=== PATIENT | male | born 1940 | race African-American/Black ===

== ENCOUNTER 2018-05-17 13:59 | Inpatient (IN) | payer MEDICARE ==
[2018-05-17] MEDS ORDERED: NACL 0.9% 1000 ML IV ONE (14:45)
--- NOTE | 2018-05-17 14:53 | Emergency Department Report ---
ED Shortness of Breath HPI - General Chief Complaint: Weakness Stated Complaint: COLD/WEAKNESS Time Seen by Provider: 05/17/18 14:43 Source: family Mode of arrival: Stretcher Limitations: Language Barrier - History of Present Illness Initial Comments: Patient is a 78-year-old gentleman who is presenting with cough congestion. Patient's family member is translating for the patient. Patient states that for the past 2-3 days he's had cough congestion fevers chills. Patient states the cough is productive of clear sputum. Patient denies any chest pain at this time. Patient states he has bouts of hot and cold that are happening intermittently. Patient denies any abdominal pain diarrhea vomiting headaches sore throats at this time. Patient does state he has some generalized weakness and fatigue and sleeping a lot. - Related Data Home Medications Medication Instructions Recorded Confirmed Last Taken Fluticasone [Flonase] 1 spray NS QDAY 05/17/18 05/17/18 Unknown Omeprazole 20 mg PO DAILY 05/17/18 05/17/18 Unknown Pregabalin [Lyrica] 75 mg PO QDAY 05/17/18 05/17/18 Unknown Ropinirole HCl [Requip] 2 mg PO QHS 05/17/18 05/17/18 Unknown Tamsulosin [Flomax] 0.4 mg PO QDAY 05/17/18 05/17/18 Unknown Tramadol HCl/Acetaminophen 2 each PO Q6HR PRN 05/17/18 05/17/18 Unknown [Ultracet] Allergies Allergy/AdvReac Type Severity Reaction Status Date / Time No Known Allergies Allergy Unverified 05/17/18 15:18 ED Review of Systems ROS: Stated complaint: COLD/WEAKNESS Other details as noted in HPI Comment: All other systems reviewed and negative ED Past Medical Hx - Past Medical History Previous Medical History?: Yes Hx of Cancer: Yes (gastric) - Surgical History Past Surgical History?: Yes Hx Cholecystectomy: Yes (2017) Additional Surgical History: colostomy - Social History Smoking Status: Never Smoker Substance Use Type: None - Medications Home Medications: Home Medications Medication Instructions Recorded Confirmed Last Taken Type Fluticasone [Flonase] 1 spray NS QDAY 05/17/18 05/17/18 Unknown History Omeprazole 20 mg PO DAILY 05/17/18 05/17/18 Unknown History Pregabalin [Lyrica] 75 mg PO QDAY 05/17/18 05/17/18 Unknown History Ropinirole HCl [Requip] 2 mg PO QHS 05/17/18 05/17/18 Unknown History Tamsulosin [Flomax] 0.4 mg PO QDAY 05/17/18 05/17/18 Unknown History Tramadol HCl/Acetaminophen 2 each PO Q6HR PRN 05/17/18 05/17/18 Unknown History [Ultracet] ED Physical Exam - General Limitations: Language Barrier General appearance: alert, in no apparent distress - Head Head exam: Present: atraumatic, normocephalic - Eye Eye exam: Present: normal appearance - ENT ENT exam: Present: mucous membranes dry - Neck Neck exam: Present: normal inspection - Respiratory Respiratory exam: Present: normal lung sounds bilaterally, rhonchi. Absent: respiratory distress, wheezes, rales, accessory muscle use - Cardiovascular Cardiovascular Exam: Present: normal rhythm, tachycardia. Absent: systolic murmur, diastolic murmur, rubs, gallop - GI/Abdominal GI/Abdominal exam: Present: soft, normal bowel sounds. Absent: distended, tenderness, guarding, rebound - Rectal Rectal exam: Present: deferred - Extremities Exam Extremities exam: Present: normal inspection - Back Exam Back exam: Present: normal inspection - Neurological Exam Neurological exam: Present: alert, oriented X3 - Psychiatric Psychiatric exam: Present: normal affect, normal mood - Skin Skin exam: Present: warm, dry, intact, normal color. Absent: rash ED Course Vital Signs 05/17/18 05/17/18 05/17/18 14:15 14:30 14:35 Temperature 100.1 F H Pulse Rate 105 H 85 Respiratory 20 Rate Blood Pressure 131/70 130/71 O2 Sat by Pulse 96 97 96 Oximetry 05/17/18 14:45 Temperature Pulse Rate 104 H Respiratory 21 Rate Blood Pressure 130/74 O2 Sat by Pulse 97 Oximetry ED Medical Decision Making - Lab Data Result diagrams: 05/17/18 16:01 05/17/18 15:09 Lab Results 05/17/18 05/17/18 05/17/18 Range/Units 15:09 15:09 16:01 WBC 4.2 L (4.5-11.0) K/mm3 RBC 3.74 (3.65-5.03) M/mm3 Hgb 12.8 (11.8-15.2) gm/dl Hct 37.3 (35.5-45.6) % MCV 100 H (84-94) fl MCH 34 H (28-32) pg MCHC 34 (32-34) % RDW 22.0 H (13.2-15.2) % Plt Count 79 L (140-440) K/mm3 Lymph % (Auto) [employer] [place] % (Auto) [employer]iller Eos % (Auto) [employer]iller Baso % (Auto) [employer]iller Lymph # [employer]iller [place] # [employer]iller Eos # [employer]iller Baso # Diamond [employer] Driller Add Manual Diff Complete Total Counted 100 Seg Neutrophils % [employer] Driller Seg Neuts % (Manual) 65.0 (40.0-70.0) % Band Neutrophils % 0 % Lymphocytes % (Manual) 12.0 L (13.4-35.0) % Reactive Lymphs % (Man) 0 % Monocytes % (Manual) 22.0 H (0.0-7.3) % Eosinophils % (Manual) 1.0 (0.0-4.3) % Basophils % (Manual) 0 (0.0-1.8) % Metamyelocytes % 0 % Myelocytes % 0 % Promyelocytes % 0 % Blast Cells % 0 % Nucleated RBC % Not Reportable Seg Neutrophils # Diamond [employer] Driller Seg Neutrophils # Man 2.7 (1.8-7.7) K/mm3 Band Neutrophils # 0.0 K/mm3 Lymphocytes # (Manual) 0.5 L (1.2-5.4) K/mm3 Abs React Lymphs (Man) 0.0 K/mm3 Monocytes # (Manual) 0.9 H (0.0-0.8) K/mm3 Eosinophils # (Manual) 0.0 (0.0-0.4) K/mm3 Basophils # (Manual) 0.0 (0.0-0.1) K/mm3 Metamyelocytes # 0.0 K/mm3 Myelocytes # 0.0 K/mm3 Promyelocytes # 0.0 K/mm3 Blast Cells # 0.0 K/mm3 WBC Morphology Not Reportable Hypersegmented Neuts Not Reportable Hyposegmented Neuts Not Reportable Hypogranular Neuts Not Reportable Smudge Cells Not Reportable Toxic Granulation Not Reportable Toxic Vacuolation Not Reportable Dohle Bodies Not Reportable Pelger-Huet Anomaly Not Reportable Grecia Rods Not Reportable Platelet Estimate Not Reportable Clumped Platelets Not Reportable Plt Clumps, EDTA Not Reportable Large Platelets Not Reportable Giant Platelets Not Reportable Platelet Satelliting Not Reportable Plt Morphology Comment Not Reportable RBC Morphology Normal Dimorphic RBCs Not Reportable Polychromasia Not Reportable Hypochromasia Not Reportable Poikilocytosis Not Reportable Anisocytosis Not Reportable Microcytosis Not Reportable Macrocytosis Not Reportable Spherocytes Not Reportable Pappenheimer Bodies Not Reportable Sickle Cells Not Reportable Target Cells Not Reportable Tear Drop Cells Not Reportable Ovalocytes Not Reportable Helmet Cells Not Reportable Hidalgo-Champ Bodies Not Reportable Gaston Rings Not Reportable [place] Cells Not Reportable Bite Cells Not Reportable Crenated Cell Not Reportable Elliptocytes Not Reportable Acanthocytes (Spur) Not Reportable Rouleaux Not Reportable Hemoglobin C Crystals Not Reportable Schistocytes Not Reportable Malaria parasites Not Reportable Cassius Bodies Not Reportable Hem Pathologist Commnt No D-Dimer 624.81 H (0-234) ng/mlDDU Sodium 133 L (137-145) mmol/L Potassium 3.9 (3.6-5.0) mmol/L Chloride 98.3 (98-107) mmol/L Carbon Dioxide 25 (22-30) mmol/L Anion Gap 14 mmol/L BUN 19 (9-20) mg/dL Creatinine 0.8 (0.8-1.5) mg/dL Estimated GFR > 60 ml/min BUN/Creatinine Ratio 24 % Glucose 78 (75-100) mg/dL Lactic Acid (0.7-2.0) mmol/L Calcium 10.2 (8.4-10.2) mg/dL Total Bilirubin 0.80 (0.1-1.2) mg/dL AST 34 (5-40) units/L ALT 18 (7-56) units/L Alkaline Phosphatase 70 (35-129) units/L Total Protein 7.9 (6.3-8.2) g/dL Albumin 3.9 (3.9-5) g/dL Albumin/Globulin Ratio 1.0 % 05/17/18 05/17/18 Range/Units 16:01 16:36 WBC (4.5-11.0) K/mm3 RBC (3.65-5.03) M/mm3 Hgb (11.8-15.2) gm/dl Hct (35.5-45.6) % MCV (84-94) fl MCH (28-32) pg MCHC (32-34) % RDW (13.2-15.2) % Plt Count (140-440) K/mm3 Lymph % (Auto) [place] % (Auto) Eos % (Auto) Baso % (Auto) Lymph # [place] # Eos # Baso # Add Manual Diff Total Counted Seg Neutrophils % Seg Neuts % (Manual) (40.0-70.0) % Band Neutrophils % % Lymphocytes % (Manual) (13.4-35.0) % Reactive Lymphs % (Man) % Monocytes % (Manual) (0.0-7.3) % Eosinophils % (Manual) (0.0-4.3) % Basophils % (Manual) (0.0-1.8) % Metamyelocytes % % Myelocytes % % Promyelocytes % % Blast Cells % % Nucleated RBC % Seg Neutrophils # Seg Neutrophils # Man (1.8-7.7) K/mm3 Band Neutrophils # K/mm3 Lymphocytes # (Manual) (1.2-5.4) K/mm3 Abs React Lymphs (Man) K/mm3 Monocytes # (Manual) (0.0-0.8) K/mm3 Eosinophils # (Manual) (0.0-0.4) K/mm3 Basophils # (Manual) (0.0-0.1) K/mm3 Metamyelocytes # K/mm3 Myelocytes # K/mm3 Promyelocytes # K/mm3 Blast Cells # K/mm3 WBC Morphology Hypersegmented Neuts Hyposegmented Neuts Hypogranular Neuts Smudge Cells Toxic Granulation Toxic Vacuolation Dohle Bodies Pelger-Huet Anomaly Grecia Rods Platelet Estimate Clumped Platelets Plt Clumps, EDTA Large Platelets Giant Platelets Platelet Satelliting Plt Morphology Comment RBC Morphology Dimorphic RBCs Polychromasia Hypochromasia Poikilocytosis Anisocytosis Microcytosis Macrocytosis Spherocytes Pappenheimer Bodies Sickle Cells Target Cells Tear Drop Cells Ovalocytes Helmet Cells Hidalgo-Champ Bodies [place] Rings [place] Cells Bite Cells Crenated Cell Elliptocytes Acanthocytes (Spur) Rouleaux Hemoglobin C Crystals Schistocytes Malaria parasites Cassius Bodies Hem Pathologist Commnt D-Dimer (0-234) ng/mlDDU Sodium (137-145) mmol/L Potassium (3.6-5.0) mmol/L Chloride (98-107) mmol/L Carbon Dioxide (22-30) mmol/L Anion Gap mmol/L BUN (9-20) mg/dL Creatinine (0.8-1.5) mg/dL Estimated GFR ml/min BUN/Creatinine Ratio % Glucose (75-100) mg/dL Lactic Acid 2.40 H* 2.50 H* (0.7-2.0) mmol/L Calcium (8.4-10.2) mg/dL Total Bilirubin (0.1-1.2) mg/dL AST (5-40) units/L ALT (7-56) units/L Alkaline Phosphatase (35-129) units/L Total Protein (6.3-8.2) g/dL Albumin (3.9-5) g/dL Albumin/Globulin Ratio % - Radiology Data Ordering Physician: GLORIA CHANDRA MD Date of Service: 05/17/18 Procedure(s): CT angio chest Accession Number(s): [id number] cc: GLORIA CHANDRA MD FINAL REPORT EXAM: CT ANGIO CHEST HISTORY: LLL opacity, sob, elevated ddimer TECHNIQUE: CTA of the chest was performed after the administration of intravenous contrast. Coronal and sagittal reconstructions were included. Rotating MIPS were also included. PRIORS: None. FINDINGS: Pulmonary arteries and thoracic aorta: The study is adequate for diagnostic purposes. No central or segmental pulmonary embolism. The thoracic aorta is normal in caliber. Atherosclerotic calculi are seen in the thoracic aorta. A left chest port is present with the tip lying in the right atrium. Lungs and airways: Trace left pleural effusion is seen. The airways are patent. No bronchiectasis. There is a focal spiculated nodule in the anterior aspect of the right upper lobe on series 2, image 37 measuring 10 x 9 millimeters. There is another focal nodule in the anterior aspect of the right upper lobe on series 2, image 54 with mild central cavitation measuring 1.6 x 1.6 centimeters. Another nodule with central cavitation is seen in the right upper lobe on series 2, image 58 measuring 1.4 x 0.8 centimeters. A smaller nodule with central cavitation is seen in the anterior aspect of the right lower lobe on series 2, image 64 measuring 6 millimeters. Another nodule with central cavitation is seen in the central aspect of the right lower lobe on series 2, image 57 measuring 1.3 x 1.0 centimeters. There is a focal mass in the inferior aspect of the left upper lobe in the region of the previously seen opacity on the chest x-ray on series 2, image 69 measuring 3.2 x 3.0 centimeters. Focal nodule in the posterior aspect of the left lower lobe is seen on series 2, image 104 measuring 1.5 x 1.0 centimeters. Bilateral dependent atelectasis is seen. Multifocal areas of linear opacity are seen scattered throughout the lungs, predominantly within the upper lobes and posterior aspect of the right lower lobe. Mediastinum, heart, pericardium: Several small mediastinal and hilar lymph nodes are seen. The largest is seen in the subcarinal region measuring 2.3 x 1.1 centimeters. No cardiac chamber enlargement. No pericardial effusion. Thoracic inlet, chest wall, axilla: No chest wall masses. The visualized portions of the thyroid gland demonstrate no focal lesion. No axillary lymphadenopathy. Upper abdomen: Post cholecystectomy. Several tiny low-attenuation hepatic lesions are seen which are too small to characterize but likely represent small cysts. Bones: Degenerative changes are seen in the spine. IMPRESSION: 1. No central or segmental pulmonary embolism. 2. Multifocal pulmonary nodules and masses with the largest in the inferior aspect of the left upper lobe measuring 3.2 centimeters. These nodules may represent metastatic disease versus septic emboli. Primary pulmonary neoplasm with multiple focal pulmonary metastases is also possible. 3. Several small mediastinal lymph nodes may be reactive versus neoplastic. 4. Trace left pleural effusion. Transcribed By: MG Dictated By: JACQUELINE DUMONT MD Electronically Authenticated By: JACQUELINE DUMONT MD Signed Date/Time: 05/17/18 1744 - Medical Decision Making Patient is a 78-year-old [place] gentleman who presented with cough congestion and fevers and chills for the past several days. Patient did meet sepsis protocol by vital signs on admission. Patient started on antibiotics after blood cultures drawn did get IV hydration and continued to be stable during his visit in the emergency department. Initially thought the patient may have pneumonia however his CT of the chest shows multiple pulmonary nodules though suspicious for metastasis however septic emboli has not been ruled out. Patient also has a small pleural effusion on the left that he has several small mediastinal lymph nodes that appear to be reactive. Patient will be admitted to the hospitalist service and Dr. Bearden at this time. Critical Care Time: Yes (30) Critical care time in (mins) excluding proc time.: 30 Critical care attestation.: If time is entered above; I have spent that time in minutes in the direct care of this critically ill patient, excluding procedure time. ED Disposition Clinical Impression: Lung nodules, Pneumonitis, Sepsis Disposition: OP ADMIT IP TO THIS HOSP Is pt being admited?: Yes Does the pt Need Aspirin: No Condition: Stable Referrals: PRIMARY CARE, [Primary Care Provider] - 3-5 Days
[2018-05-17] MEDS ORDERED: LEVAQUIN 750MG/150ML 750 MG/150 ML BAG IV ONE (15:12)
[2018-05-17 15:38] LABS: Alanine Aminotransferase 18 units/L (7-56); Albumin 3.9 g/dL (3.9-5); BUN/Creatinine Ratio 24; Blood Urea Nitrogen 19 mg/dL (9-20); Calcium 10.2 mg/dL (8.4-10.2); Hemolysis Index 40
--- NOTE | 2018-05-17 15:46 | XRay Report ---
FINAL REPORT EXAM: XR CHEST 1V AP HISTORY: cough TECHNIQUE: Frontal chest radiograph. PRIORS: None. FINDINGS: A left chest port is present with the tip projecting at the cavoatrial junction. The cardiomediastinal silhouette is normal. There is a focal rounded opacity projecting in the left lower lobe measuring approximately 3.9 centimeters. No pleural effusion. No pneumothorax. No acute osseous abnormality. Right upper quadrant surgical clips are. IMPRESSION: Focal rounded opacity in the left lower lobe may represent a pulmonary nodule. Recommend further evaluation with chest CT.
[2018-05-17] MEDS ORDERED: LEVAQUIN 750MG/150ML 750 MG/150 ML BAG IV SCH (16:00)
[2018-05-17 16:22] LABS: Hematocrit 37.3 % (35.5-45.6); Hemoglobin 12.8 gm/dl (11.8-15.2); Mean Corpuscular HGB Conc 34 % (32-34); Mean Corpuscular Hemoglobin 34 pg (28-32); Mean Corpuscular Volume 100 fl (84-94); Red Blood Count 3.74 M/mm3 (3.65-5.03)
[2018-05-17 16:25] LABS: Platelet Count 79 K/mm3 (140-440)
[2018-05-17 17:24] LABS: Basophils % (Manual) 0 % (0.0-1.8); RBC Morphology Normal; Total Cells Counted 100
--- NOTE | 2018-05-17 17:48 | Cat Scan Report ---
FINAL REPORT EXAM: CT ANGIO CHEST HISTORY: LLL opacity, sob, elevated ddimer TECHNIQUE: CTA of the chest was performed after the administration of intravenous contrast. Coronal and sagittal reconstructions were included. Rotating MIPS were also included. PRIORS: None. FINDINGS: Pulmonary arteries and thoracic aorta: The study is adequate for diagnostic purposes. No central or segmental pulmonary embolism. The thoracic aorta is normal in caliber. Atherosclerotic calculi are seen in the thoracic aorta. A left chest port is present with the tip lying in the right atrium. Lungs and airways: Trace left pleural effusion is seen. The airways are patent. No bronchiectasis. There is a focal spiculated nodule in the anterior aspect of the right upper lobe on series 2, image 37 measuring 10 x 9 millimeters. There is another focal nodule in the anterior aspect of the right upper lobe on series 2, image 54 with mild central cavitation measuring 1.6 x 1.6 centimeters. Another nodule with central cavitation is seen in the right upper lobe on series 2, image 58 measuring 1.4 x 0.8 centimeters. A smaller nodule with central cavitation is seen in the anterior aspect of the right lower lobe on series 2, image 64 measuring 6 millimeters. Another nodule with central cavitation is seen in the central aspect of the right lower lobe on series 2, image 57 measuring 1.3 x 1.0 centimeters. There is a focal mass in the inferior aspect of the left upper lobe in the region of the previously seen opacity on the chest x-ray on series 2, image 69 measuring 3.2 x 3.0 centimeters. Focal nodule in the posterior aspect of the left lower lobe is seen on series 2, image 104 measuring 1.5 x 1.0 centimeters. Bilateral dependent atelectasis is seen. Multifocal areas of linear opacity are seen scattered throughout the lungs, predominantly within the upper lobes and posterior aspect of the right lower lobe. Mediastinum, heart, pericardium: Several small mediastinal and hilar lymph nodes are seen. The largest is seen in the subcarinal region measuring 2.3 x 1.1 centimeters. No cardiac chamber enlargement. No pericardial effusion. Thoracic inlet, chest wall, axilla: No chest wall masses. The visualized portions of the thyroid gland demonstrate no focal lesion. No axillary lymphadenopathy. Upper abdomen: Post cholecystectomy. Several tiny low-attenuation hepatic lesions are seen which are too small to characterize but likely represent small cysts. Bones: Degenerative changes are seen in the spine. IMPRESSION: 1. No central or segmental pulmonary embolism. 2. Multifocal pulmonary nodules and masses with the largest in the inferior aspect of the left upper lobe measuring 3.2 centimeters. These nodules may represent metastatic disease versus septic emboli. Primary pulmonary neoplasm with multiple focal pulmonary metastases is also possible. 3. Several small mediastinal lymph nodes may be reactive versus neoplastic. 4. Trace left pleural effusion.
[2018-05-17 21:26] LABS: Bilirubin,Urine NEG (Negative); Blood,Urine NEG (Negative); Color,Urine Yellow (Yellow); Mucus,Urine FEW /HPF; Protein,Urine <15 mg/dL mg/dL (Negative); Urobilinogen,Urine < 2.0 mg/dL (<2.0)
--- NOTE | 2018-05-17 22:18 | History and Physical Report ---
History of Present Illness Date of examination: 05/17/18 History of present illness: 78 year old man with history of metastatic colon cancer comes to the ER for evaluation of fever, chills, fatigue. He is currently undergoing chemotherapy and was postponed yesterday because of his weakness. He complains of painful blisters that came out on his lower lip, his throat feels dry, also has a non- productive cough Review of systems Constitutional: no weight loss Ears, eyes, nose, mouth and throat: no nasal congestion, no nasal discharge, no sinus pressure, no vision change, no red eye. Neck: No neck pain or rigidity. Cardiovascular: no chest pain palpitations Respiratory: no cough, shortness of breath Gastrointestinal: no abdominal pain, hematochezia Genitourinary : no frequency , no hematuria Musculoskeletal: no joint swelling or muscle ache Integumentary: no rash, no pruritis Neurological: no parathesias, no numbness, no focal weakness Endocrine: no cold or heat intolerance, no polyuria or polydipsia Hematologic/Lymphatic: no easy bruising, no easy bleeding, no gland swelling Allergic/Immunologic: no urticaria, no angioedema. PAST MEDICAL HISTORY: metastatic colon PAST SURGICAL HISTORY: Colostomy, part of the colon removed SOCIAL HISTORY: No alcohol, no drugs, tobacco FAMILY HISTORY: Hypertension Medications and Allergies Allergies Allergy/AdvReac Type Severity Reaction Status Date / Time No Known Allergies Allergy Unverified 05/17/18 15:18 Home Medications Medication Instructions Recorded Confirmed Last Taken Type Fluticasone [Flonase] 1 spray NS QDAY 05/17/18 05/17/18 Unknown History Omeprazole 20 mg PO DAILY 05/17/18 05/17/18 Unknown History Pregabalin [Lyrica] 75 mg PO QDAY 05/17/18 05/17/18 Unknown History Ropinirole HCl [Requip] 2 mg PO QHS 05/17/18 05/17/18 Unknown History Tamsulosin [Flomax] 0.4 mg PO QDAY 05/17/18 05/17/18 Unknown History Tramadol HCl/Acetaminophen 2 each PO Q6HR PRN 05/17/18 05/17/18 Unknown History [Ultracet] Nystas/Diphen/Xyl Visc/Mylanta 15 ml PO TID #1 oral.liqd 05/20/18 Unknown Rx [Magic Mouthwash] Sodium Bicarbonate 650 mg PO BID #10 tablet 05/20/18 Unknown Rx Active Meds: Active Medications Levofloxacin/Dextrose (Levaquin 750mg/150ml) 750 mg in 150 mls @ 100 mls/hr IV Q48H [facility]; Protocol Last Admin: 05/17/18 15:05 Dose: 100 mls/hr Exam - Physical Exam Narrative exam: Gen. appearance: Patient lying in bed, no apparent distress HEENT: Normocephalic, atraumatic, pupils equally round and reactive to light, eyes are , extraocular movement intact, and no sclericterus,. No JVD or thyromegaly or nodule,neck supple, no carotid bruit ,mucous membranes dry, no exudate or erythema Heart: S1, S2, regular rate and rhythm Lungs: Clear bilaterally, breathing comfortable Abdomen: Positive bowel sounds, nontender, nondistended, no organomegaly Extremity:no edema cyanosis, clubbing Skin no rash, dry Neuro: Oriented 3, cranial nerves II-12 intact, speech is fluent, motor and sensory intact - Constitutional Vitals: Temp Pulse Resp BP Pulse Ox 100.1 F H 105 H 19 91/57 97 05/17/18 14:35 05/17/18 21:15 05/17/18 21:15 05/17/18 21:15 05/17/18 21:15 Results - Labs CBC & Chem 7: 05/19/18 11:55 05/20/18 05:45 Labs: Abnormal lab results 05/17/18 05/17/18 05/17/18 Range/Units 15:09 15:09 16:01 WBC 4.2 L (4.5-11.0) K/mm3 MCV 100 H (84-94) fl MCH 34 H (28-32) pg RDW 22.0 H (13.2-15.2) % Plt Count 79 L (140-440) K/mm3 Lymphocytes % (Manual) 12.0 L (13.4-35.0) % Monocytes % (Manual) 22.0 H (0.0-7.3) % Lymphocytes # (Manual) 0.5 L (1.2-5.4) K/mm3 Monocytes # (Manual) 0.9 H (0.0-0.8) K/mm3 D-Dimer 624.81 H (0-234) ng/mlDDU Sodium 133 L (137-145) mmol/L Lactic Acid (0.7-2.0) mmol/L Ur Specific [place] (1.003-1.030) 05/17/18 05/17/18 05/17/18 Range/Units 16:01 16:36 21:14 WBC (4.5-11.0) K/mm3 MCV (84-94) fl MCH (28-32) pg RDW (13.2-15.2) % Plt Count (140-440) K/mm3 Lymphocytes % (Manual) (13.4-35.0) % Monocytes % (Manual) (0.0-7.3) % Lymphocytes # (Manual) (1.2-5.4) K/mm3 Monocytes # (Manual) (0.0-0.8) K/mm3 D-Dimer (0-234) ng/mlDDU Sodium (137-145) mmol/L Lactic Acid 2.40 H* 2.50 H* (0.7-2.0) mmol/L Ur Specific [place] 1.060 H (1.003-1.030) - Imaging and Cardiology Chest x-ray: image reviewed CT scan - chest: report reviewed Assessment and Plan Assessment SIRS MEtastatic colon CAncer Thrombocytopenia Plan Admit to medicine Start IV fluid, vancomycin, zosyn and ayclovir Follow culture DVT prophalaxis
[2018-05-18] MEDS ORDERED: TYLENOL PO PRN ×2 (00:11→00:18)
[2018-05-18] MEDS ORDERED: SODIUM CHLORIDE FLUSH SYRINGE 10 ML IV PRN ×2 (00:11→00:18)
[2018-05-18] MEDS ORDERED: ZOFRAN IV PRN ×2 (00:11→00:18)
[2018-05-18] MEDS ORDERED: VANCOMYCIN/NS 1 GM/250 ML 1 GM/250 ML BAG IV SCH (01:00)
[2018-05-18] MEDS ORDERED: NACL 0.9% IV SCH (01:00)
[2018-05-18] MEDS ORDERED: ZOVIRAX IV SCH (01:00)
[2018-05-18] MEDS ORDERED: VANCOMYCIN PHARMACY TO DOSE IV SCH (01:00)
[2018-05-18] MEDS ORDERED: VANCOMYCIN 1,250 MG in NACL 0.9% 250ML 250 ML IV ONE (01:00)
[2018-05-18] MEDS: NACL 0.9% IV SCH ×3 (01:20→17:40)
[2018-05-18] MEDS: ZOVIRAX IV SCH ×3 (01:20→17:40)
[2018-05-18] MEDS: NACL 0.9% 1000 ML 1,000 ML IV SCH ×2 (01:21→21:08)
[2018-05-18] MEDS: ZOSYN/NS 4.5GM/100ML 4.5 GM/100 ML VIAL IV SCH ×3 (05:34→21:57)
[2018-05-18] MEDS ORDERED: ZOSYN/NS 3.375GM/50ML 3.375 GM/50 ML BAG IV SCH (06:00)
[2018-05-18 06:26] LABS: Hematocrit 41.1 % (35.5-45.6); Hemoglobin 14.2 gm/dl (11.8-15.2); Mean Corpuscular HGB Conc 35 % (32-34); Mean Corpuscular Hemoglobin 34 pg (28-32); Mean Corpuscular Volume 99 fl (84-94); Red Blood Count 4.17 M/mm3 (3.65-5.03)
[2018-05-18 06:36] LABS: Platelet Count 95 K/mm3 (140-440); Red Cell Distribution Width 22.7 % (13.2-15.2)
[2018-05-18 06:43] LABS: BUN/Creatinine Ratio 26; Blood Urea Nitrogen 21 mg/dL (9-20); Calcium 9.1 mg/dL (8.4-10.2); Hemolysis Index 4
[2018-05-18 08:19] LABS: Anisocytosis 1+; Band Neutrophils # (Manual) 0.1 K/mm3; Basophils % (Manual) 0 % (0.0-1.8); Eosinophils % (Manual) 0 % (0.0-4.3); Ovalocytes 1+; Platelet Estimate Appears Decreased; Promyelocytes # (Manual) 0.1 K/mm3; Total Cells Counted 100
--- NOTE | 2018-05-18 09:09 | Progress Note ---
Assessment and Plan Assessment and plan: 78 year old man with history of metastatic colon cancer comes to the ER for evaluation of fever, chills, fatigue for several days. He is currently undergoing chemotherapy and was postponed yesterday because of his weakness. He complains of painful blisters that came out on his lower lip, his throat feels dry, also has a non-productive cough. Sepsis Septic Emboli vs Metastic Pulmonary disease Metastatic colon Cancer Secondary Hypercoagluopathy Hyponatremia-Resolved Trace Pleural Effusion Thrombocytopenia Plan Admit to medicine Continue IV fluid, vancomycin, zosyn and acyclovir Start on nystatin Consult Hematology and ID Defer to Hematology about Anticoagulation considering Thrombocytopenia Obtain doppler lower ext Follow culture DVT prophalaxis History Interval history: Patient seen and examined, still with some shortness of breath. Denies any chest pain discussed with the healthcare interpreter as requested by the family with the son in law. Hospitalist Physical - Physical exam Narrative exam: VITAL SIGNS: Reviewed. GENERAL: The patient appeared well nourished and normally developed otherwise lethargic. Vital signs as documented. HEAD: No signs of head trauma. EYES: Pupils are equal. Extraocular motions intact. EARS: Hearing grossly intact. MOUTH: Oropharynx is normal. NECK: No adenopathy, no JVD. CHEST: Chest with diminished breath sounds bilaterally. No wheezes, rales, or rhonchi. CARDIAC: Regular rate and rhythm. S1 and S2, without murmurs, gallops, or rubs. VASCULAR: No Edema. Peripheral pulses normal and equal in all extremities. ABDOMEN: Soft, without detectable tenderness. No sign of distention. No rebound or guarding, and no masses palpated. Bowel Sounds normal. MUSCULOSKELETAL: Good range of motion of all major joints. Extremities without clubbing, cyanosis or edema. NEUROLOGIC EXAM: Awake but lethargic and oriented x 3. No focal sensory or strength deficits. Speech normal. Follows commands. PSYCHIATRIC: Mood normal. SKIN: No rash or lesions. - Constitutional Vitals: Temp Pulse Resp BP Pulse Ox 98.9 F 86 18 120/62 96 05/18/18 06:12 05/18/18 06:12 05/18/18 06:12 05/18/18 06:12 05/18/18 06:12 Results - Labs CBC & Chem 7: 05/18/18 05:52 05/18/18 05:52 Labs: Laboratory Last Values WBC 6.5 K/mm3 (4.5-11.0) 05/18/18 05:52 RBC 4.17 M/mm3 (3.65-5.03) 05/18/18 05:52 Hgb 14.2 gm/dl (11.8-15.2) 05/18/18 05:52 Hct 41.1 % (35.5-45.6) 05/18/18 05:52 MCV 99 fl (84-94) H 05/18/18 05:52 MCH 34 pg (28-32) H 05/18/18 05:52 MCHC 35 % (32-34) H 05/18/18 05:52 RDW 22.7 % (13.2-15.2) H 05/18/18 05:52 Plt Count 95 K/mm3 (140-440) L 05/18/18 05:52 Lymph % (Auto) Photocomposing Machine Operator 05/17/18 16:01 Page % (Auto) Photocomposing Machine Operator 05/18/18 05:52 Eos % (Auto) Photocomposing Machine Operator 05/17/18 16:01 Baso % (Auto) Photocomposing Machine Operator 05/17/18 16:01 Lymph # Photocomposing Machine Operator 05/17/18 16:01 Page # Photocomposing Machine Operator 05/17/18 16:01 Eos # Photocomposing Machine Operator 05/17/18 16:01 Baso # Photocomposing Machine Operator 05/17/18 16:01 Add Manual Diff Complete 05/18/18 05:52 Total Counted 100 05/18/18 05:52 Seg Neutrophils % Photocomposing Machine Operator 05/17/18 16:01 Seg Neuts % (Manual) 84.0 % (40.0-70.0) H 05/18/18 05:52 Band Neutrophils % 2.0 % 05/18/18 05:52 Lymphocytes % (Manual) 6.0 % (13.4-35.0) L 05/18/18 05:52 Reactive Lymphs % (Man) 0 % 05/18/18 05:52 Monocytes % (Manual) 6.0 % (0.0-7.3) 05/18/18 05:52 Eosinophils % (Manual) 0 % (0.0-4.3) 05/18/18 05:52 Basophils % (Manual) 0 % (0.0-1.8) 05/18/18 05:52 Metamyelocytes % 1.0 % 05/18/18 05:52 Myelocytes % 0 % 05/18/18 05:52 Promyelocytes % 1.0 % 05/18/18 05:52 Blast Cells % 0 % 05/18/18 05:52 Nucleated RBC % Not Reportable 05/18/18 05:52 Seg Neutrophils # Photocomposing Machine Operator 05/17/18 16:01 Seg Neutrophils # Man 5.5 K/mm3 (1.8-7.7) 05/18/18 05:52 Band Neutrophils # 0.1 K/mm3 05/18/18 05:52 Lymphocytes # (Manual) 0.4 K/mm3 (1.2-5.4) L 05/18/18 05:52 Abs React Lymphs (Man) 0.0 K/mm3 05/18/18 05:52 Monocytes # (Manual) 0.4 K/mm3 (0.0-0.8) 05/18/18 05:52 Eosinophils # (Manual) 0.0 K/mm3 (0.0-0.4) 05/18/18 05:52 Basophils # (Manual) 0.0 K/mm3 (0.0-0.1) 05/18/18 05:52 Metamyelocytes # 0.1 K/mm3 05/18/18 05:52 Myelocytes # 0.0 K/mm3 05/18/18 05:52 Promyelocytes # 0.1 K/mm3 05/18/18 05:52 Blast Cells # 0.0 K/mm3 05/18/18 05:52 WBC Morphology Not Reportable 05/18/18 05:52 Hypersegmented Neuts Not Reportable 05/18/18 05:52 Hyposegmented Neuts Not Reportable 05/18/18 05:52 Hypogranular Neuts Not Reportable 05/18/18 05:52 Smudge Cells Not Reportable 05/18/18 05:52 Toxic Granulation Not Reportable 05/18/18 05:52 Toxic Vacuolation Not Reportable 05/18/18 05:52 Dohle Bodies Not Reportable 05/18/18 05:52 Pelger-Huet Anomaly Not Reportable 05/18/18 05:52 Grecia Rods Not Reportable 05/18/18 05:52 Platelet Estimate Appears decreased 05/18/18 05:52 Clumped Platelets Not Reportable 05/18/18 05:52 Plt Clumps, EDTA Not Reportable 05/18/18 05:52 Large Platelets Not Reportable 05/18/18 05:52 Giant Platelets Not Reportable 05/18/18 05:52 Platelet Satelliting Not Reportable 05/18/18 05:52 Plt Morphology Comment Not Reportable 05/18/18 05:52 RBC Morphology Not Reportable 05/18/18 05:52 Dimorphic RBCs Not Reportable 05/18/18 05:52 Polychromasia Not Reportable 05/18/18 05:52 Hypochromasia Not Reportable 05/18/18 05:52 Poikilocytosis Not Reportable 05/18/18 05:52 Anisocytosis 1+ 05/18/18 05:52 Microcytosis Not Reportable 05/18/18 05:52 Macrocytosis Not Reportable 05/18/18 05:52 Spherocytes Not Reportable 05/18/18 05:52 Pappenheimer Bodies Not Reportable 05/18/18 05:52 Sickle Cells Not Reportable 05/18/18 05:52 Target Cells Not Reportable 05/18/18 05:52 Tear Drop Cells Not Reportable 05/18/18 05:52 Ovalocytes 1+ 05/18/18 05:52 Helmet Cells Not Reportable 05/18/18 05:52 [place] Bodies Not Reportable 05/18/18 05:52 [place] Rings Not Reportable 05/18/18 05:52 [place] Cells Not Reportable 05/18/18 05:52 Bite Cells Not Reportable 05/18/18 05:52 Crenated Cell Not Reportable 05/18/18 05:52 Elliptocytes Not Reportable 05/18/18 05:52 Acanthocytes (Spur) Not Reportable 05/18/18 05:52 Rouleaux Not Reportable 05/18/18 05:52 Hemoglobin C Crystals Not Reportable 05/18/18 05:52 Schistocytes Not Reportable 05/18/18 05:52 Malaria parasites Not Reportable 05/18/18 05:52 Cassius Bodies Not Reportable 05/18/18 05:52 Hem Pathologist Commnt No 05/18/18 05:52 D-Dimer 624.81 ng/mlDDU (0-234) H 05/17/18 15:09 Sodium 137 mmol/L (137-145) 05/18/18 05:52 Potassium 3.9 mmol/L (3.6-5.0) 05/18/18 05:52 Chloride 98.4 mmol/L (98-107) 05/18/18 05:52 Carbon Dioxide 23 mmol/L (22-30) 05/18/18 05:52 Anion Gap 20 mmol/L 05/18/18 05:52 BUN 21 mg/dL (9-20) H 05/18/18 05:52 Creatinine 0.8 mg/dL (0.8-1.5) 05/18/18 05:52 Estimated GFR > 60 ml/min 05/18/18 05:52 BUN/Creatinine Ratio 26 % 05/18/18 05:52 Glucose 105 mg/dL (75-100) H 05/18/18 05:52 Lactic Acid 1.30 mmol/L (0.7-2.0) 05/17/18 20:10 Calcium 9.1 mg/dL (8.4-10.2) 05/18/18 05:52 Total Bilirubin 0.80 mg/dL (0.1-1.2) 05/17/18 15:09 AST 34 units/L (5-40) 05/17/18 15:09 ALT 18 units/L (7-56) 05/17/18 15:09 Alkaline Phosphatase 70 units/L (35-129) 05/17/18 15:09 Total Protein 7.9 g/dL (6.3-8.2) 05/17/18 15:09 Albumin 3.9 g/dL (3.9-5) 05/17/18 15:09 Albumin/Globulin Ratio 1.0 % 05/17/18 15:09 Urine Color Yellow (Yellow) 05/17/18 21:14 Urine Turbidity Clear (Clear) 05/17/18 21:14 Urine pH 6.0 (5.0-7.0) 05/17/18 21:14 Ur Specific [place] 1.060 (1.003-1.030) H 05/17/18 21:14 Urine Protein <15 mg/dl mg/dL (Negative) 05/17/18 21:14 Urine Glucose (UA) Neg mg/dL (Negative) 05/17/18 21:14 Urine Ketones Neg mg/dL (Negative) 05/17/18 21:14 Urine Blood Neg (Negative) 05/17/18 21:14 Urine Nitrite Neg (Negative) 05/17/18 21:14 Urine Bilirubin Neg (Negative) 05/17/18 21:14 Urine Urobilinogen < 2.0 mg/dL (<2.0) 05/17/18 21:14 Ur Leukocyte Esterase Tr (Negative) 05/17/18 21:14 Urine WBC (Auto) 3.0 /HPF (0.0-6.0) 05/17/18 21:14 Urine RBC (Auto) 1.0 /HPF (0.0-6.0) 05/17/18 21:14 U Epithel Cells (Auto) < 1.0 /HPF (0-13.0) 05/17/18 21:14 Urine Mucus Few /HPF 05/17/18 21:14 - Imaging and Cardiology Chest x-ray: image reviewed CT scan - chest: image reviewed (multiple pulmonary nodules)
[2018-05-18] MEDS: SODIUM CHLORIDE FLUSH SYRINGE 10 ML IV SCH (09:50)
[2018-05-18] MEDS ORDERED: LEVAQUIN 750MG/150ML 750 MG/150 ML BAG IV SCH (10:00)
[2018-05-18] MEDS ORDERED: LOVENOX SUB-Q SCH ×2 (10:00)
[2018-05-18] MEDS ORDERED: SODIUM CHLORIDE FLUSH SYRINGE 10 ML IV SCH (10:00)
[2018-05-18] MEDS: VANCOMYCIN/NS 1 GM/250 ML 1 GM/250 ML BAG IV SCH (11:07)
--- NOTE | 2018-05-18 12:04 | Hem/Onc Consultation ---
History of Present Illness - Reason for Consult Consult date: 05/18/18 - History of Present Illness dictated Medications and Allergies Allergies Allergy/AdvReac Type Severity Reaction Status Date / Time No Known Allergies Allergy Unverified 05/17/18 15:18 Home Medications Medication Instructions Recorded Confirmed Last Taken Type Fluticasone [Flonase] 1 spray NS QDAY 05/17/18 05/17/18 Unknown History Omeprazole 20 mg PO DAILY 05/17/18 05/17/18 Unknown History Pregabalin [Lyrica] 75 mg PO QDAY 05/17/18 05/17/18 Unknown History Ropinirole HCl [Requip] 2 mg PO QHS 05/17/18 05/17/18 Unknown History Tamsulosin [Flomax] 0.4 mg PO QDAY 05/17/18 05/17/18 Unknown History Tramadol HCl/Acetaminophen 2 each PO Q6HR PRN 05/17/18 05/17/18 Unknown History [Ultracet] Active Meds: Active Medications Acetaminophen (Tylenol) 650 mg PO Q4H PRN PRN Reason: Pain MILD(1-3)/Fever >100.5/NOEL Sodium Chloride (Nacl 0.9% 1000 Ml) 1,000 mls @ 125 mls/hr IV DIRECT ANNMARIE Last Admin: 05/18/18 01:21 Dose: 125 mls/hr Acyclovir 300 mg/ Sodium (Chloride) 106 mls @ 100 mls/hr IV Q8H [facility]; Protocol Last Admin: 05/18/18 09:50 Dose: 100 mls/hr Piperacillin Sod/Tazobactam Sod (Zosyn/Ns 4.5gm/100ml) 4.5 gm in 100 mls @ 200 mls/hr IV Q8HR [facility] Last Admin: 05/18/18 05:34 Dose: 200 mls/hr Vancomycin HCl (Vancomycin/Ns 1 Gm/250 Ml) 1 gm in 250 mls @ 166.667 mls/hr IV Q24HR [facility] Last Admin: 05/18/18 11:07 Dose: 166.667 mls/hr Lidocaine HCl (Magic Mouthwash) 15 ml PO TID ANNMARIE Ondansetron HCl (Zofran) 4 mg IV Q8H PRN PRN Reason: Nausea And Vomiting Sodium Chloride (Sodium Chloride Flush Syringe 10 Ml) 10 ml IV BID [facility] Last Admin: 05/18/18 09:50 Dose: 10 ml Sodium Chloride (Sodium Chloride Flush Syringe 10 Ml) 10 ml IV PRN PRN PRN Reason: LINE FLUSH Vancomycin HCl (Vancomycin Pharmacy To Dose) 1 each IV PKCONSULT [facility] Exam - Constitutional Vitals: Last Vital Signs Temp 98.9 F 05/18/18 06:12 Pulse 86 05/18/18 06:12 Resp 18 05/18/18 06:12 BP 120/62 05/18/18 06:12 Pulse Ox 96 05/18/18 06:12 Results - Labs lab Results: Laboratory Results - last 24 hr 05/17/18 05/17/18 05/17/18 15:09 15:09 16:01 WBC 4.2 L RBC 3.74 Hgb 12.8 Hct 37.3 MCV 100 H MCH 34 H MCHC 34 RDW 22.0 H Plt Count 79 L Lymph % (Auto) Luggage Repairer [place] % (Auto) Luggage Repairer Eos % (Auto) Luggage Repairer Baso % (Auto) Luggage Repairer Lymph # Luggage Repairer Stokes # Luggage Repairer Eos # Luggage Repairer Baso # Luggage Repairer Add Manual Diff Complete Total Counted 100 Seg Neutrophils % Luggage Repairer Seg Neuts % (Manual) 65.0 Band Neutrophils % 0 Lymphocytes % (Manual) 12.0 L Reactive Lymphs % (Man) 0 Monocytes % (Manual) 22.0 H Eosinophils % (Manual) 1.0 Basophils % (Manual) 0 Metamyelocytes % 0 Myelocytes % 0 Promyelocytes % 0 Blast Cells % 0 Nucleated RBC % Not Reportable Seg Neutrophils # Luggage Repairer Seg Neutrophils # Man 2.7 Band Neutrophils # 0.0 Lymphocytes # (Manual) 0.5 L Abs React Lymphs (Man) 0.0 Monocytes # (Manual) 0.9 H Eosinophils # (Manual) 0.0 Basophils # (Manual) 0.0 Metamyelocytes # 0.0 Myelocytes # 0.0 Promyelocytes # 0.0 Blast Cells # 0.0 WBC Morphology Not Reportable Hypersegmented Neuts Not Reportable Hyposegmented Neuts Not Reportable Hypogranular Neuts Not Reportable Smudge Cells Not Reportable Toxic Granulation Not Reportable Toxic Vacuolation Not Reportable Dohle Bodies Not Reportable Pelger-Huet Anomaly Not Reportable Grecia Rods Not Reportable Platelet Estimate Not Reportable Clumped Platelets Not Reportable Plt Clumps, EDTA Not Reportable Large Platelets Not Reportable Giant Platelets Not Reportable Platelet Satelliting Not Reportable Plt Morphology Comment Not Reportable RBC Morphology Normal Dimorphic RBCs Not Reportable Polychromasia Not Reportable Hypochromasia Not Reportable Poikilocytosis Not Reportable Anisocytosis Not Reportable Microcytosis Not Reportable Macrocytosis Not Reportable Spherocytes Not Reportable Pappenheimer Bodies Not Reportable Sickle Cells Not Reportable Target Cells Not Reportable Tear Drop Cells Not Reportable Ovalocytes Not Reportable Helmet Cells Not Reportable [place] Bodies Not Reportable [place] Rings Not Reportable [place] Cells Not Reportable Bite Cells Not Reportable Crenated Cell Not Reportable Elliptocytes Not Reportable Acanthocytes (Spur) Not Reportable Rouleaux Not Reportable Hemoglobin C Crystals Not Reportable Schistocytes Not Reportable Malaria parasites Not Reportable Cassius Bodies Not Reportable Hem Pathologist Commnt No D-Dimer 624.81 H Sodium 133 L Potassium 3.9 Chloride 98.3 Carbon Dioxide 25 Anion Gap 14 BUN 19 Creatinine 0.8 Estimated GFR > 60 BUN/Creatinine Ratio 24 Glucose 78 Lactic Acid Calcium 10.2 Total Bilirubin 0.80 AST 34 ALT 18 Alkaline Phosphatase 70 Total Protein 7.9 Albumin 3.9 Albumin/Globulin Ratio 1.0 Urine Color Urine Turbidity Urine pH Ur Specific [place] Urine Protein Urine Glucose (UA) Urine Ketones Urine Blood Urine Nitrite Urine Bilirubin Urine Urobilinogen Ur Leukocyte Esterase Urine WBC (Auto) Urine RBC (Auto) U Epithel Cells (Auto) Urine Mucus 05/17/18 05/17/18 05/17/18 16:01 16:36 20:10 WBC RBC Hgb Hct MCV MCH MCHC RDW Plt Count Lymph % (Auto) [place] % (Auto) Eos % (Auto) Baso % (Auto) Lymph # [place] # Eos # Baso # Add Manual Diff Total Counted Seg Neutrophils % Seg Neuts % (Manual) Band Neutrophils % Lymphocytes % (Manual) Reactive Lymphs % (Man) Monocytes % (Manual) Eosinophils % (Manual) Basophils % (Manual) Metamyelocytes % Myelocytes % Promyelocytes % Blast Cells % Nucleated RBC % Seg Neutrophils # Seg Neutrophils # Man Band Neutrophils # Lymphocytes # (Manual) Abs React Lymphs (Man) Monocytes # (Manual) Eosinophils # (Manual) Basophils # (Manual) Metamyelocytes # Myelocytes # Promyelocytes # Blast Cells # WBC Morphology Hypersegmented Neuts Hyposegmented Neuts Hypogranular Neuts Smudge Cells Toxic Granulation Toxic Vacuolation Dohle Bodies Pelger-Huet Anomaly Grecia Rods Platelet Estimate Clumped Platelets Plt Clumps, EDTA Large Platelets Giant Platelets Platelet Satelliting Plt Morphology Comment RBC Morphology Dimorphic RBCs Polychromasia Hypochromasia Poikilocytosis Anisocytosis Microcytosis Macrocytosis Spherocytes Pappenheimer Bodies Sickle Cells Target Cells Tear Drop Cells Ovalocytes Helmet Cells [place] Bodies [place] Rings [place] Cells Bite Cells Crenated Cell Elliptocytes Acanthocytes (Spur) Rouleaux Hemoglobin C Crystals Schistocytes Malaria parasites Cassius Bodies Hem Pathologist Commnt D-Dimer Sodium Potassium Chloride Carbon Dioxide Anion Gap BUN Creatinine Estimated GFR BUN/Creatinine Ratio Glucose Lactic Acid 2.40 H* 2.50 H* 1.30 Calcium Total Bilirubin AST ALT Alkaline Phosphatase Total Protein Albumin Albumin/Globulin Ratio Urine Color Urine Turbidity Urine pH Ur Specific [place] Urine Protein Urine Glucose (UA) Urine Ketones Urine Blood Urine Nitrite Urine Bilirubin Urine Urobilinogen Ur Leukocyte Esterase Urine WBC (Auto) Urine RBC (Auto) U Epithel Cells (Auto) Urine Mucus 05/17/18 05/18/18 05/18/18 21:14 05:52 05:52 WBC 6.5 RBC 4.17 Hgb 14.2 Hct 41.1 MCV 99 H MCH 34 H MCHC 35 H RDW 22.7 H Plt Count 95 L Lymph % (Auto) [place] % (Auto) Luggage Repairer Eos % (Auto) Baso % (Auto) Lymph # [place] # Eos # Baso # Add Manual Diff Complete Total Counted 100 Seg Neutrophils % Seg Neuts % (Manual) 84.0 H Band Neutrophils % 2.0 Lymphocytes % (Manual) 6.0 L Reactive Lymphs % (Man) 0 Monocytes % (Manual) 6.0 Eosinophils % (Manual) 0 Basophils % (Manual) 0 Metamyelocytes % 1.0 Myelocytes % 0 Promyelocytes % 1.0 Blast Cells % 0 Nucleated RBC % Not Reportable Seg Neutrophils # Seg Neutrophils # Man 5.5 Band Neutrophils # 0.1 Lymphocytes # (Manual) 0.4 L Abs React Lymphs (Man) 0.0 Monocytes # (Manual) 0.4 Eosinophils # (Manual) 0.0 Basophils # (Manual) 0.0 Metamyelocytes # 0.1 Myelocytes # 0.0 Promyelocytes # 0.1 Blast Cells # 0.0 WBC Morphology Not Reportable Hypersegmented Neuts Not Reportable Hyposegmented Neuts Not Reportable Hypogranular Neuts Not Reportable Smudge Cells Not Reportable Toxic Granulation Not Reportable Toxic Vacuolation Not Reportable Dohle Bodies Not Reportable Pelger-Huet Anomaly Not Reportable Grecia Rods Not Reportable Platelet Estimate Appears decreased Clumped Platelets Not Reportable Plt Clumps, EDTA Not Reportable Large Platelets Not Reportable Giant Platelets Not Reportable Platelet Satelliting Not Reportable Plt Morphology Comment Not Reportable RBC Morphology Not Reportable Dimorphic RBCs Not Reportable Polychromasia Not Reportable Hypochromasia Not Reportable Poikilocytosis Not Reportable Anisocytosis 1+ Microcytosis Not Reportable Macrocytosis Not Reportable Spherocytes Not Reportable Pappenheimer Bodies Not Reportable Sickle Cells Not Reportable Target Cells Not Reportable Tear Drop Cells Not Reportable Ovalocytes 1+ [place] Cells Not Reportable [place] Bodies Not Reportable [place] Rings Not Reportable [place] Cells Not Reportable Bite Cells Not Reportable Crenated Cell Not Reportable Elliptocytes Not Reportable Acanthocytes (Spur) Not Reportable Rouleaux Not Reportable Hemoglobin C Crystals Not Reportable Schistocytes Not Reportable Malaria parasites Not Reportable Cassius Bodies Not Reportable Hem Pathologist Commnt No D-Dimer Sodium 137 Potassium 3.9 Chloride 98.4 Carbon Dioxide 23 Anion Gap 20 BUN 21 H Creatinine 0.8 Estimated GFR > 60 BUN/Creatinine Ratio 26 Glucose 105 H Lactic Acid Calcium 9.1 Total Bilirubin AST ALT Alkaline Phosphatase Total Protein Albumin Albumin/Globulin Ratio Urine Color Yellow Urine Turbidity Clear Urine pH 6.0 Ur Specific [place] 1.060 H Urine Protein <15 mg/dl Urine Glucose (UA) Neg Urine Ketones Neg Urine Blood Neg Urine Nitrite Neg Urine Bilirubin Neg Urine Urobilinogen < 2.0 Ur Leukocyte Esterase Tr Urine WBC (Auto) 3.0 Urine RBC (Auto) 1.0 U Epithel Cells (Auto) < 1.0 Urine Mucus Few
[2018-05-18] MEDS: MAGIC MOUTHWASH PO SCH ×2 (14:30→21:58)
--- NOTE | 2018-05-19 00:16 | Consultation ---
REFERRING PHYSICIAN: Bal Breaux MD REASON FOR CONSULTATION: Pulmonary nodules, history of colon CA. HISTORY OF PRESENT ILLNESS: The patient is a 78-year-old French man, who I have obtained the history from the patient's daughter over the phone. He has history of metastatic colon cancer, on chemotherapy with Xeloda and some form of IV chemo, who complained of weakness, abdominal pain, shortness of breath and diarrhea. He presented to the Emergency Room and the patient's CT of the chest because of shortness of breath was done where he was found to have no evidence of pulmonary embolus, but multifocal pulmonary nodules and masses with the largest in the inferior aspect of the left upper lobe measuring 3.2 cm. There was a possibility of metastatic disease versus septic emboli. There were several small mediastinal lymph nodes, reactive versus neoplastic, and a trace left pleural effusion. The patient also was found to have thrombocytopenia with the platelet count of 79,000, white count 4.2, hemoglobin 12.8, MCV 100. Other pertinent labs showed lactic acid of 2.5, which came down to 1.3. The patient is currently admitted to the hospital, on empiric antibiotics. Blood cultures have been done, so far negative. Because of the history of colon cancer with metastatic lung lesions, Oncology consult was called. The patient's current oncologist is Dr. Fernandes with [facility]. PAST MEDICAL HISTORY: The patient's past medical history is positive for colon cancer, status post surgery, not sure when. MEDICATIONS: At home Flonase, omeprazole, Lyrica, Requip, Flomax, and Ultracet. PHYSICAL EXAMINATION: GENERAL: The patient is awake and oriented. HEAD AND ENT: Examination is unremarkable. CHEST: Decreased breath sounds. CARDIOVASCULAR: Regular rate and rhythm. ABDOMEN: Soft, slightly tender. EXTREMITIES: Has no clubbing, cyanosis, or edema. LABORATORY DATA: Lab work as mentioned in history of present illness. Today's platelet count is 95,000, hemoglobin 14.2, white count 6.5, BUN 21, creatinine 0.8. ASSESSMENT: 1. Pulmonary nodules, seemed to be related to metastatic disease. I doubt these are septic emboli, especially with a normal white count and the patient is not looking septic and the fact that he has known metastatic colon cancer with lung metastases. 2. Diarrhea could be related to Xeloda, rule out other possibility including Clostridium difficile. 3. Weakness. RECOMMENDATION PLAN: At this time, we will go ahead and order C. diff. Continue empiric antibiotics. Follow up on the cultures. Hold Xeloda. We will follow. I have discussed this with the patient's daughter over the phone. Once he is better, he can go, follow up with his primary oncologist, Dr. Fernandes. JOB# [id number] LORY/NTS
[2018-05-19] MEDS: NACL 0.9% IV SCH ×2 (00:46→11:15)
[2018-05-19] MEDS: ZOVIRAX IV SCH ×2 (00:46→11:15)
[2018-05-19] MEDS: ZOSYN/NS 4.5GM/100ML 4.5 GM/100 ML VIAL IV SCH (06:58)
[2018-05-19] MEDS: NACL 0.9% 1000 ML 1,000 ML IV SCH ×2 (06:59→16:21)
--- NOTE | 2018-05-19 09:05 | Hem/Onc Progress Note ---
Assessment and Plan Overall improvement. Xeloda held. C. difficile negative. Discussed with patient's family member who is the saddle and side wire stitcher. Continue to hold Xeloda until he sees his oncologist as outpatient. Subjective Date of service: 05/19/18 Interval history: Patient feels better. Tolerating by mouth. Abdominal pain has improved. Objective - Constitutional Vitals: Last Vital Signs Temp 98.2 F 05/19/18 05:28 Pulse 80 05/19/18 05:28 Resp 24 05/19/18 05:28 BP 103/57 05/19/18 05:28 Pulse Ox 97 05/19/18 05:28 General appearance: mild distress Performance status: 2- selfcare, ambulatory - Neck Neck: supple - Respiratory Respiratory effort: Positive: normal Respiratory: bilateral: diminished - Cardiovascular Rhythm: regular Extremities: No edema - Gastrointestinal General gastrointestinal: Present: soft - Labs Lab Results: Laboratory Results - last 24 hr 05/18/18 17:00 C. difficile Toxin A&B Negative
[2018-05-19 09:14] LABS: Hematocrit 41.3 % (35.5-45.6); Hemoglobin 14.1 gm/dl (11.8-15.2); Mean Corpuscular HGB Conc 34 % (32-34); Mean Corpuscular Hemoglobin 34 pg (28-32); Mean Corpuscular Volume 99 fl (84-94); Red Blood Count 4.17 M/mm3 (3.65-5.03)
[2018-05-19 09:22] LABS: Platelet Count 85 K/mm3 (140-440); Red Cell Distribution Width 22.4 % (13.2-15.2)
[2018-05-19 09:30] LABS: Calcium 8.8 mg/dL (8.4-10.2)
[2018-05-19] MEDS ORDERED: NACL 0.9% IV SCH (11:00)
[2018-05-19] MEDS ORDERED: ZOVIRAX IV SCH (11:00)
[2018-05-19] MEDS: VANCOMYCIN/NS 1 GM/250 ML 1 GM/250 ML BAG IV SCH (11:15)
[2018-05-19] MEDS: SODIUM CHLORIDE FLUSH SYRINGE 10 ML IV SCH ×2 (11:17→22:00)
[2018-05-19] MEDS: MAGIC MOUTHWASH PO SCH ×3 (11:23→20:43)
[2018-05-19] MEDS ORDERED: ZOSYN/NS 2.25 GM/50ML 2.25 GM/50 ML BAG IV SCH (12:00)
[2018-05-19 13:28] LABS: Hematocrit 38.7 % (35.5-45.6); Mean Corpuscular HGB Conc 34 % (32-34); Mean Corpuscular Hemoglobin 34 pg (28-32); Mean Corpuscular Volume 101 fl (84-94); Red Blood Count 3.84 M/mm3 (3.65-5.03)
[2018-05-19 13:33] LABS: Platelet Count 72 K/mm3 (140-440)
[2018-05-19 14:29] LABS: Band Neutrophils # (Manual) 0.1 K/mm3; Basophils % (Manual) 0 % (0.0-1.8); Eosinophils % (Manual) 0 % (0.0-4.3); Platelet Estimate Appears Decreased; Total Cells Counted 100
--- NOTE | 2018-05-19 15:10 | Progress Note ---
Assessment and Plan Assessment and plan: 78 year old man with history of metastatic colon cancer comes to the ER for evaluation of fever, chills, fatigue for several days. He is currently undergoing chemotherapy and was postponed yesterday because of his weakness. He complains of painful blisters that came out on his lower lip, his throat feels dry, also has a non-productive cough. SIRS secondary to no infectious etiology Septic Emboli ruled out Metastic Pulmonary disease Metastatic colon Cancer Secondary Hypercoagluopathy Hyponatremia-Resolved DARRIUS secondary to vasomotor nephropathy Trace Pleural Effusion Thrombocytopenia Plan Continue supportive care Discontinue abx. Continue Nystatin Discontinue ID consult and discussed with them Hematology input noted PT/OT Increase IVF NS rate Defer to Hematology about Anticoagulation considering Thrombocytopenia Obtain doppler lower ext Discharge plan for AM. Follow culture DVT prophalaxis History Interval history: Patient seen and examined, still with some shortness of breath. Denies any chest pain Hospitalist Physical - Physical exam Narrative exam: VITAL SIGNS: Reviewed. GENERAL: The patient appeared well nourished and normally developed otherwise lethargic. Vital signs as documented. HEAD: No signs of head trauma. EYES: Pupils are equal. Extraocular motions intact. EARS: Hearing grossly intact. MOUTH: Oropharynx is normal. NECK: No adenopathy, no JVD. CHEST: Chest with diminished breath sounds bilaterally. No wheezes, rales, or rhonchi. CARDIAC: Regular rate and rhythm. S1 and S2, without murmurs, gallops, or rubs. VASCULAR: No Edema. Peripheral pulses normal and equal in all extremities. ABDOMEN: Soft, without detectable tenderness. No sign of distention. No rebound or guarding, and no masses palpated. Bowel Sounds normal. MUSCULOSKELETAL: Good range of motion of all major joints. Extremities without clubbing, cyanosis or edema. NEUROLOGIC EXAM: Awake but lethargic and oriented x 3. No focal sensory or strength deficits. Speech normal. Follows commands. PSYCHIATRIC: Mood normal. SKIN: No rash or lesions. - Constitutional Vitals: Temp Pulse Resp BP Pulse Ox 97.8 F 79 14 103/57 95 05/19/18 11:17 05/19/18 11:17 05/19/18 11:17 05/19/18 11:17 05/19/18 11:17 Results - Labs CBC & Chem 7: 05/19/18 11:55 05/19/18 08:52 Labs: Laboratory Last Values WBC 6.8 K/mm3 (4.5-11.0) 05/19/18 11:55 RBC 3.84 M/mm3 (3.65-5.03) 05/19/18 11:55 Hgb 13.0 gm/dl (11.8-15.2) 05/19/18 11:55 Hct 38.7 % (35.5-45.6) 05/19/18 11:55 MCV 101 fl (84-94) H 05/19/18 11:55 MCH 34 pg (28-32) H 05/19/18 11:55 MCHC 34 % (32-34) 05/19/18 11:55 RDW 23.0 % (13.2-15.2) H 05/19/18 11:55 Plt Count 72 K/mm3 (140-440) L 05/19/18 11:55 Lymph % (Auto) Motor Vehicle Field Representative 05/17/18 16:01 [place] % (Auto) Motor Vehicle Field Representative 05/19/18 11:55 Eos % (Auto) Motor Vehicle Field Representative 05/17/18 16:01 Baso % (Auto) Motor Vehicle Field Representative 05/17/18 16:01 Lymph # Motor Vehicle Field Representative 05/17/18 16:01 [place] # Motor Vehicle Field Representative 05/17/18 16:01 Eos # Motor Vehicle Field Representative 05/17/18 16:01 Baso # Motor Vehicle Field Representative 05/17/18 16:01 Add Manual Diff Complete 05/19/18 11:55 Total Counted 100 05/19/18 11:55 Seg Neutrophils % Motor Vehicle Field Representative 05/17/18 16:01 Seg Neuts % (Manual) 79.0 % (40.0-70.0) H 05/19/18 11:55 Band Neutrophils % 1.0 % 05/19/18 11:55 Lymphocytes % (Manual) 6.0 % (13.4-35.0) L 05/19/18 11:55 Reactive Lymphs % (Man) 0 % 05/19/18 11:55 Monocytes % (Manual) 14.0 % (0.0-7.3) H 05/19/18 11:55 Eosinophils % (Manual) 0 % (0.0-4.3) 05/19/18 11:55 Basophils % (Manual) 0 % (0.0-1.8) 05/19/18 11:55 Metamyelocytes % 0 % 05/19/18 11:55 Myelocytes % 0 % 05/19/18 11:55 Promyelocytes % 0 % 05/19/18 11:55 Blast Cells % 0 % 05/19/18 11:55 Nucleated RBC % Not Reportable 05/19/18 11:55 Seg Neutrophils # Motor Vehicle Field Representative 05/17/18 16:01 Seg Neutrophils # Man 5.4 K/mm3 (1.8-7.7) 05/19/18 11:55 Band Neutrophils # 0.1 K/mm3 05/19/18 11:55 Lymphocytes # (Manual) 0.4 K/mm3 (1.2-5.4) L 05/19/18 11:55 Abs React Lymphs (Man) 0.0 K/mm3 05/19/18 11:55 Monocytes # (Manual) 1.0 K/mm3 (0.0-0.8) H 05/19/18 11:55 Eosinophils # (Manual) 0.0 K/mm3 (0.0-0.4) 05/19/18 11:55 Basophils # (Manual) 0.0 K/mm3 (0.0-0.1) 05/19/18 11:55 Metamyelocytes # 0.0 K/mm3 05/19/18 11:55 Myelocytes # 0.0 K/mm3 05/19/18 11:55 Promyelocytes # 0.0 K/mm3 05/19/18 11:55 Blast Cells # 0.0 K/mm3 05/19/18 11:55 WBC Morphology Not Reportable 05/19/18 11:55 Hypersegmented Neuts Not Reportable 05/19/18 11:55 Hyposegmented Neuts Not Reportable 05/19/18 11:55 Hypogranular Neuts Not Reportable 05/19/18 11:55 Smudge Cells Not Reportable 05/19/18 11:55 Toxic Granulation Not Reportable 05/19/18 11:55 Toxic Vacuolation Not Reportable 05/19/18 11:55 Dohle Bodies Not Reportable 05/19/18 11:55 Pelger-Huet Anomaly Not Reportable 05/19/18 11:55 Grecia Rods Not Reportable 05/19/18 11:55 Platelet Estimate Appears decreased 05/19/18 11:55 Clumped Platelets Not Reportable 05/19/18 11:55 Plt Clumps, EDTA Not Reportable 05/19/18 11:55 Large Platelets Not Reportable 05/19/18 11:55 Giant Platelets Not Reportable 05/19/18 11:55 Platelet Satelliting Not Reportable 05/19/18 11:55 Plt Morphology Comment Not Reportable 05/19/18 11:55 RBC Morphology Not Reportable 05/19/18 11:55 Dimorphic RBCs Not Reportable 05/19/18 11:55 Polychromasia Not Reportable 05/19/18 11:55 Hypochromasia Not Reportable 05/19/18 11:55 Poikilocytosis Not Reportable 05/19/18 11:55 Anisocytosis Not Reportable 05/19/18 11:55 Microcytosis Not Reportable 05/19/18 11:55 Macrocytosis Not Reportable 05/19/18 11:55 Spherocytes Not Reportable 05/19/18 11:55 Pappenheimer Bodies Not Reportable 05/19/18 11:55 Sickle Cells Not Reportable 05/19/18 11:55 Target Cells Not Reportable 05/19/18 11:55 Tear Drop Cells Not Reportable 05/19/18 11:55 Ovalocytes Not Reportable 05/19/18 11:55 Helmet Cells Not Reportable 05/19/18 11:55 [place] Bodies Not Reportable 05/19/18 11:55 [place] Rings Not Reportable 05/19/18 11:55 [place] Cells Not Reportable 05/19/18 11:55 Bite Cells Not Reportable 05/19/18 11:55 Crenated Cell Not Reportable 05/19/18 11:55 Elliptocytes Not Reportable 05/19/18 11:55 Acanthocytes (Spur) Not Reportable 05/19/18 11:55 Rouleaux Not Reportable 05/19/18 11:55 Hemoglobin C Crystals Not Reportable 05/19/18 11:55 Schistocytes Not Reportable 05/19/18 11:55 Malaria parasites Not Reportable 05/19/18 11:55 Cassius Bodies Not Reportable 05/19/18 11:55 Hem Pathologist Commnt No 05/19/18 11:55 D-Dimer 624.81 ng/mlDDU (0-234) H 05/17/18 15:09 Sodium 137 mmol/L (137-145) 05/19/18 08:52 Potassium 3.8 mmol/L (3.6-5.0) 05/19/18 08:52 Chloride 103.0 mmol/L (98-107) 05/19/18 08:52 Carbon Dioxide 18 mmol/L (22-30) L 05/19/18 08:52 Anion Gap 20 mmol/L 05/19/18 08:52 BUN 31 mg/dL (9-20) H 05/19/18 08:52 Creatinine 1.5 mg/dL (0.8-1.5) D 05/19/18 08:52 Estimated GFR 45 ml/min 05/19/18 08:52 BUN/Creatinine Ratio 21 % 05/19/18 08:52 Glucose 144 mg/dL (75-100) H 05/19/18 08:52 Lactic Acid 1.30 mmol/L (0.7-2.0) 05/17/18 20:10 Calcium 8.8 mg/dL (8.4-10.2) 05/19/18 08:52 Total Bilirubin 0.80 mg/dL (0.1-1.2) 05/17/18 15:09 AST 34 units/L (5-40) 05/17/18 15:09 ALT 18 units/L (7-56) 05/17/18 15:09 Alkaline Phosphatase 70 units/L (35-129) 05/17/18 15:09 Total Protein 7.9 g/dL (6.3-8.2) 05/17/18 15:09 Albumin 3.9 g/dL (3.9-5) 05/17/18 15:09 Albumin/Globulin Ratio 1.0 % 05/17/18 15:09 Urine Color Yellow (Yellow) 05/17/18 21:14 Urine Turbidity Clear (Clear) 05/17/18 21:14 Urine pH 6.0 (5.0-7.0) 05/17/18 21:14 Ur Specific [place] 1.060 (1.003-1.030) H 05/17/18 21:14 Urine Protein <15 mg/dl mg/dL (Negative) 05/17/18 21:14 Urine Glucose (UA) Neg mg/dL (Negative) 05/17/18 21:14 Urine Ketones Neg mg/dL (Negative) 05/17/18 21:14 Urine Blood Neg (Negative) 05/17/18 21:14 Urine Nitrite Neg (Negative) 05/17/18 21:14 Urine Bilirubin Neg (Negative) 05/17/18 21:14 Urine Urobilinogen < 2.0 mg/dL (<2.0) 05/17/18 21:14 Ur Leukocyte Esterase Tr (Negative) 05/17/18 21:14 Urine WBC (Auto) 3.0 /HPF (0.0-6.0) 05/17/18 21:14 Urine RBC (Auto) 1.0 /HPF (0.0-6.0) 05/17/18 21:14 U Epithel Cells (Auto) < 1.0 /HPF (0-13.0) 05/17/18 21:14 Urine Mucus Few /HPF 05/17/18 21:14 C. difficile Toxin A&B Negative (Negative) 05/18/18 17:00
[2018-05-20] MEDS: NACL 0.9% 1000 ML 1,000 ML IV SCH ×2 (03:19→08:25)
[2018-05-20] MEDS: MAGIC MOUTHWASH PO SCH (08:26)
[2018-05-20 08:49] LABS: BUN/Creatinine Ratio 26; Blood Urea Nitrogen 23 mg/dL (9-20); Calcium 8.4 mg/dL (8.4-10.2); Hemolysis Index 51
--- NOTE | 2018-05-20 09:22 | Discharge Summary ---
Providers - Providers Date of Admission: 05/17/18 22:17 Attending physician: ASHUTOSH ROSE MD 05/18/18 09:05 Consult to Physician [CONS] Routine Comment: Consulting Provider: MARISA WOO Physician Instructions: Reason For Exam: septic emboli in cancer patient 05/19/18 15:11 Physical Therapy Evaluation and Treat [CONS] Routine Comment: Reason For Exam: debility, generalized weakness Primary care physician: GALLEY STRIPPER Hospitalization Condition: Stable Hospital course: 78 year old man with history of metastatic colon cancer comes to the ER for evaluation of fever, chills, fatigue for several days. He is currently undergoing chemotherapy and was postponed yesterday because of his weakness. He complains of painful blisters that came out on his lower lip, his throat feels dry, also has a non-productive cough. Overall improvement. Xeloda held. C. difficile negative. Discussed with patient's family member who is the paraprofessional interpreter. Continue to hold Xeloda until he sees his oncologist as outpatient. SIRS secondary to no infectious etiology Septic Emboli ruled out Metastic Pulmonary disease Metastatic colon Cancer METABOLIC ACIDOSIS Secondary Hypercoagluopathy Hyponatremia-Resolved DARRIUS secondary to vasomotor nephropathy Trace Pleural Effusion Thrombocytopenia Disposition: DC/TX-06 HOME UNDER HOME HLTH Exam - Constitutional Vitals: Temp Pulse Resp BP Pulse Ox 98.2 F 70 20 121/62 96 05/20/18 05:15 05/20/18 05:15 05/20/18 05:15 05/20/18 05:15 05/20/18 05:15 Plan Activity: advance as tolerated, fall precautions Diet: low fat Special Instructions: record daily BP diary Additional Instructions: HOLD XELODA UNTILL SEEN BY ONCOLOGIST Follow up with: PRIMARY CAREMD [Primary Care Provider] - 3-5 Days Prescriptions: Nystas/Diphen/Xyl Visc/Mylanta [Magic Mouthwash] 15 ml PO TID #1 oral.liqd Sodium Bicarbonate 650 mg PO BID #10 tablet
[2018-05-20] MEDS: SODIUM CHLORIDE FLUSH SYRINGE 10 ML IV SCH (11:08)
--- NOTE | 2018-05-20 12:02 | Hem/Onc Progress Note ---
Assessment and Plan Overall improvement. Possible discharge today. Platelets have been low. Possibly secondary to chemotherapy but patient can follow-up with his oncologist next week. Patient's son-in-law in the room and I have explained to him. Subjective Date of service: 05/20/18 Interval history: Patient feels better. Tolerating by mouth. Abdominal pain has improved. Denies any active bleeding Objective - Constitutional Vitals: Last Vital Signs Temp 98.2 F 05/20/18 05:15 Pulse 70 05/20/18 05:15 Resp 20 05/20/18 05:15 BP 121/62 05/20/18 05:15 Pulse Ox 96 05/20/18 05:15 Pain Intensity (0-10): denies any pain General appearance: no acute distress Performance status: 2- selfcare, ambulatory - Neck Neck: supple - Respiratory Respiratory effort: Positive: normal - Cardiovascular Rhythm: regular - Gastrointestinal General gastrointestinal: Present: soft (colostomy present) - Labs Lab Results: Laboratory Results - last 24 hr 05/19/18 05/20/18 11:55 05:45 WBC 6.8 RBC 3.84 Hgb 13.0 Hct 38.7 MCV 101 H MCH 34 H MCHC 34 RDW 23.0 H Plt Count 72 L [place] % (Auto) Forepart [place] Add Manual Diff Complete Total Counted 100 Seg Neuts % (Manual) 79.0 H Band Neutrophils % 1.0 Lymphocytes % (Manual) 6.0 L Reactive Lymphs % (Man) 0 Monocytes % (Manual) 14.0 H Eosinophils % (Manual) 0 Basophils % (Manual) 0 Metamyelocytes % 0 Myelocytes % 0 Promyelocytes % 0 Blast Cells % 0 Nucleated RBC % Not Reportable Seg Neutrophils # Man 5.4 Band Neutrophils # 0.1 Lymphocytes # (Manual) 0.4 L Abs React Lymphs (Man) 0.0 Monocytes # (Manual) 1.0 H Eosinophils # (Manual) 0.0 Basophils # (Manual) 0.0 Metamyelocytes # 0.0 Myelocytes # 0.0 Promyelocytes # 0.0 Blast Cells # 0.0 WBC Morphology Not Reportable Hypersegmented Neuts Not Reportable Hyposegmented Neuts Not Reportable Hypogranular Neuts Not Reportable Smudge Cells Not Reportable Toxic Granulation Not Reportable Toxic Vacuolation Not Reportable Dohle Bodies Not Reportable Pelger-Huet Anomaly Not Reportable Grecia Rods Not Reportable Platelet Estimate Appears decreased Clumped Platelets Not Reportable Plt Clumps, EDTA Not Reportable Large Platelets Not Reportable Giant Platelets Not Reportable Platelet Satelliting Not Reportable Plt Morphology Comment Not Reportable RBC Morphology Not Reportable Dimorphic RBCs Not Reportable Polychromasia Not Reportable Hypochromasia Not Reportable Poikilocytosis Not Reportable Anisocytosis Not Reportable Microcytosis Not Reportable Macrocytosis Not Reportable Spherocytes Not Reportable Pappenheimer Bodies Not Reportable Sickle Cells Not Reportable Target Cells Not Reportable Tear Drop Cells Not Reportable Ovalocytes Not Reportable Helmet Cells Not Reportable [place] Bodies Not Reportable [place] Rings Not Reportable [place] Cells Not Reportable Bite Cells Not Reportable Crenated Cell Not Reportable Elliptocytes Not Reportable Acanthocytes (Spur) Not Reportable Rouleaux Not Reportable Hemoglobin C Crystals Not Reportable Schistocytes Not Reportable Malaria parasites Not Reportable Cassius Bodies Not Reportable Hem Pathologist Commnt No Sodium 139 Potassium 3.6 Chloride 108.4 H Carbon Dioxide 17 L Anion Gap 17 BUN 23 H Creatinine 0.9 Estimated GFR > 60 BUN/Creatinine Ratio 26 Glucose 81 Calcium 8.4
[2018-05-20 14:08] VITALS: BP 128/62
--- NOTE | 2018-05-23 10:07 | Vascular Lab Report ---
LOWER EXTREMITY VENOUS DUPLEX: REASON FOR EXAM: Deep venous thrombosis. COMMENTS ON THE RIGHT: All veins visualized are freely compressible without evidence of internal echogenicity. Flow is spontaneous and phasic throughout. COMMENTS ON THE LEFT: All veins visualized are freely compressible without evidence of internal echogenicity. Flow is spontaneous and phasic throughout. IMPRESSION: No evidence of acute or chronic deep venous thrombosis in either lower extremity.
== END 2018-05-20 14:24 | disposition home health service (06) | DRG 871 ==
LOC: ED 13:59 → 3A 22:17
PROVIDERS: ADMIT Internal Medicine; ATTEND Internal Medicine
DX: A41.9 Sepsis, unspecified organism (principal); N17.0 Acute kidney failure with tubular necrosis; J18.9 Pneumonia, unspecified organism; E87.1 Hypo-osmolality and hyponatremia; J90 Pleural effusion, not elsewhere classified; C18.9 Malignant neoplasm of colon, unspecified; E87.2 Acidosis; D68.69 Other thrombophilia; D69.6 Thrombocytopenia, unspecified; R91.1 Solitary pulmonary nodule; Z93.3 Colostomy status; Z82.49 Family history of ischemic heart disease and other diseases of the circulatory system; Z79.899 Other long term (current) drug therapy
CPT/HCPCS: 36415; 71045; 71275; 80048; 80053; 81001; 82140; 85007; 85025; 85027; 85379; 87040; 87324; 93306; 93970; 96365; 96366; 96367; 96375; J0133; J1956; J2543; J3370; J7030; J7050; Q9967

== ENCOUNTER 2018-08-11 15:11 | Inpatient (IN) | payer MEDICARE ==
[2018-08-11] MEDS ORDERED: ZOFRAN IV ONE (18:09)
[2018-08-11] MEDS ORDERED: SUBLIMAZE IV ONE ×2 (18:09→21:29)
--- NOTE | 2018-08-11 18:15 | Emergency Department Report ---
HPI - General Chief Complaint: Abdominal Pain Time Seen by Provider: 08/11/18 17:49 - HPI HPI: The patient is a 78-year-old male with a significant history of colon cancer with metastasis, who presents for evaluation of shortness of breath, and left posterior pelvic pain at site of previous skin infection. The patient states that his shortness of breath began at 2 PM earlier today, approximately 4 hours prior to my evaluation. He states that his shortness of breath has been constant, moderate in severity, exacerbated with activity. He states that his posterior pelvic pain has been present for the past week. Prior social bedside , the patient was treated for an infection to the area 2 weeks ago, his symptoms returned one week ago. The patient also admitted to a tertiary complaint of diffuse myalgias to the bilateral shoulders, upper back, and lower back. He is also complains of continued lip and tongue pain, which has been present for some time. The patient denies trauma to the chest or back, fever, chest pain, hemoptysis, vomiting, abdominal pain. ED Past Medical Hx - Past Medical History Additional medical history: Colon CA with mets to the lungs - Surgical History Hx Cholecystectomy: Yes (2017) Additional Surgical History: colostomy - Social History Smoking Status: Former Smoker Substance Use Type: None - Medications Home Medications: Home Medications Medication Instructions Recorded Confirmed Last Taken Type Omeprazole 20 mg PO DAILY 05/17/18 08/11/18 08/11/18 08:00 History Pregabalin [Lyrica] 150 mg PO QDAY 05/17/18 08/11/18 08/10/18 History Ropinirole HCl [Requip] 2 mg PO QHS 05/17/18 08/11/18 08/10/18 21:00 History Tamsulosin [Flomax] 0.4 mg PO QDAY 05/17/18 08/11/18 08/10/18 08:00 History Tramadol HCl/Acetaminophen 2 each PO Q6HR PRN 05/17/18 08/11/18 Unknown History [Ultracet] Cephalexin [Keflex] 500 mg 08/11/18 08/10/18 History HYDROcodone/APAP 5-325 [[place] 1 each PO Q4-6H PRN 08/11/18 08/11/18 08/11/18 08: 00 History 5/325] Regorafenib [Stivarga] 40 mg 08/11/18 Unknown History ED Review of Systems ROS: Stated complaint: BACK PAIN Other details as noted in HPI Constitutional: denies: fever ENT: denies: throat or neck pain Respiratory: denies: cough reports shortness of breath Cardiovascular: denies: chest pain Endocrine: denies unexplained weight loss or gain Gastrointestinal: denies: abdominal pain, nausea Genitourinary: denies: dysuria Musculoskeletal: reports diffuse myalgias denies: leg swelling Skin: reports pain and redness to left posterior pelvis Neurological: denies: Paresthesia or motor deficit Hematological/Lymphatic: denies: easy bleeding or easy bruising Psych: denies sadness or hopelessness Physical Exam - Physical Exam Vital Signs: Vital Signs 08/11/18 08/11/18 15:19 15:54 Temperature 98.2 F Pulse Rate 82 Respiratory 18 16 Rate Blood Pressure 159/78 O2 Sat by Pulse 96 Oximetry Physical Exam: General: well-nourished, well-developed, no acute distress Head: Normocephalic, atraumatic Eyes: normal sclera ENT: Mucous membranes are pale and dry Neck: No neck stiffness, no cervical adenopathy, no midline tenderness overlying cervical spinous process, no spinous step-off or obvious deformity Respiratory: Breath sounds equal bilaterally, no wheezing, rales, or rhonchi Cardio: S1 and S2 present, no murmurs, rubs, gallops, capillary refill is delayed Abdomen: Normoactive bowel sounds, soft abdomen, no rigidity, no guarding or rebound tenderness Chest WALL/Back: No tenderness to palpation of the chest wall, no CVA tenderness with percussion Musc: Inspection of the upper back, and shoulders unremarkable, Bilateral caudal medial trapezius tenderness to palpation present, No pitting edema Skin: No rash Neuro: alert, oriented x3, no facial drooping, no sensation or motor deficits, no [place] deficit Psych: Normal affect ED Course Vital Signs 08/11/18 08/11/18 15:19 15:54 Temperature 98.2 F Pulse Rate 82 Respiratory 18 16 Rate Blood Pressure 159/78 O2 Sat by Pulse 96 Oximetry ED Medical Decision Making - Lab Data Result diagrams: 08/11/18 19:16 08/11/18 19:16 - Medical Decision Making The patient was seen and examined by myself. The patient is placed on a nurse monitoring and continuous pulse ox. On initial evaluation, the patient was found to be in no distress. Evaluation orders were placed. The patient is given pain medicine and IV Rocephin for treatment of his sacral cellulitis. Lab results are grossly unrevealing. CT scan the chest reveals a small pleural effusion and bilateral masses likely secondary to metastasis. The on-call hospitalist service was contacted. They agreed to admit the patient for further treatment and close monitoring. The ED admit order was placed. The patient was admitted in guarded condition. Critical care attestation.: If time is entered above; I have spent that time in minutes in the direct care of this critically ill patient, excluding procedure time. ED Disposition Clinical Impression: Dehydration, Pleural effusion, Acute dyspnea Cellulitis Qualifiers: Site of cellulitis: buttock Qualified Code(s): L03.317 - Cellulitis of buttock Disposition: OP ADMIT IP TO THIS HOSP Is pt being admited?: Yes Does the pt Need Aspirin: Yes Condition: Serious Referrals: PRIMARY CARE, [Primary Care Provider] - 3-5 Days Time of Disposition: 21:31
[2018-08-11] MEDS ORDERED: ROCEPHIN/NS 1 GM/50 ML 1 GM/50 ML BAG IV ONE (18:30)
--- NOTE | 2018-08-11 18:44 | XRay Report ---
FINAL REPORT EXAM: XR CHEST 1V AP HISTORY: dyspnea, hx of metastatic colon cancer TECHNIQUE: Frontal portable view of the chest Comparison: CT angiogram chest and x-ray chest dated May 17, 2018 FINDINGS: There appears to been interval increase in the size of 2 of the larger masses in the midlung rodriguez bilaterally. There has been interval development of blunting of the left costophrenic angle suggestive of a left pleural fluid collection. The cardiomediastinal silhouette is not significantly changed in appearance. A left port catheter is not significantly changed in appearance. The bony structures are unremarkable. Visualization detail of the thoracic spine is limited. IMPRESSION: 1. Appearance of interval increase in the size of 2 of the larger masses in the midlung rodriguez bilaterally and interval development of left pleural fluid collection.
[2018-08-11 19:36] LABS: Basophils % (Auto) 0.4 % (0.0-1.8); Eosinophils # (Auto) 0.1 K/mm3 (0.0-0.4); Eosinophils % (Auto) 1.4 % (0.0-4.3); Hematocrit 52.3 % (35.5-45.6); Hemoglobin 17.3 gm/dl (11.8-15.2); Mean Corpuscular HGB Conc 33 % (32-34); Mean Corpuscular Hemoglobin 31 pg (28-32); Mean Corpuscular Volume 93 fl (84-94); Monocytes # (Auto) 1.2 K/mm3 (0.0-0.8); Monocytes % (Auto) 13.8 % (0.0-7.3); Platelet Count 121 K/mm3 (140-440); Red Blood Count 5.63 M/mm3 (3.65-5.03); Red Cell Distribution Width 18.2 % (13.2-15.2)
[2018-08-11 19:57] LABS: Alanine Aminotransferase 26 units/L (7-56); BUN/Creatinine Ratio 22; Blood Urea Nitrogen 13 mg/dL (9-20); Calcium 9.7 mg/dL (8.4-10.2); Hemolysis Index 4
[2018-08-11] MEDS ORDERED: NORCO 5/325 PO ONE (21:18)
[2018-08-11] MEDS ORDERED: NACL 0.9% 500 ML 500 ML IV ONE (21:30)
--- NOTE | 2018-08-11 22:52 | Cat Scan Report ---
FINAL REPORT EXAM: CT ANGIO CHEST HISTORY: dyspnea TECHNIQUE: Following administration of IV contrast axial helical imaging was performed through the chest with sagittal and coronal reformatted images and maximum intensity projection images obtained. Comparison: CT chest dated May 17, 2018 FINDINGS: Visualization detail in portions of the chest is somewhat limited by motion artifact. The study remains of diagnostic quality. There has been interval increase in the size and number of the bilateral pulmonary masses. Some of these masses demonstrate central necrosis as was demonstrated on the previous study. There is no evidence of pneumothorax. There is a small left pleural fluid collection as was demonstrated on the previous study. The trachea is patent. However, there is partial opacification of some of the left lower lobe bronchioles. There is mediastinal and left hilar adenopathy. This does not appear to be significantly changed in the interval. The heart is enlarged. The thoracic aorta is normal caliber. No filling defects are demonstrated within the central pulmonary arteries to suggest the presence of central pulmonary artery emboli. However, segmental pulmonary artery emboli could be missed or overcalled due to motion artifact. The visualized portion the upper abdomen is notable for evidence of previous cholecystectomy. The bony structures are unremarkable. IMPRESSION: 1. Study somewhat degraded by motion artifact. 2. No evidence of central pulmonary artery emboli. However, segmental pulmonary artery emboli could be missed or overcalled due to motion artifact. 3. Interval increase in size and number of the bilateral pulmonary masses. Some demonstrate necrosis. 4. Partial opacification of left lower lobe bronchials. Whether not this is secondary to retained secretions or tumor is unclear. 5. Cardiomegaly.
--- NOTE | 2018-08-11 23:51 | History and Physical Report ---
History of Present Illness Date of examination: 08/11/18 History of present illness: 78 year old man with history of metastatic colon cancer comes to the ER for shortness of breath that started Today, no PND, orthopnea, edema Review of systems Constitutional: no weight loss, chills, fever Ears, eyes, nose, mouth and throat: no nasal congestion, no nasal discharge, no sinus pressure, no vision change, no red eye. Neck: No neck pain or rigidity. Cardiovascular: no chest pain, palpitations Respiratory: no cough Gastrointestinal: no abdominal pain hematochezia Genitourinary : no frequency , no hematuria Musculoskeletal: no joint swelling or muscle ache Integumentary: no rash, no pruritis Neurological: no parathesias, no numbness, no focal weakness Endocrine: no cold or heat intolerance, no polyuria or polydipsia Hematologic/Lymphatic: no easy bruising, no easy bleeding, no gland swelling Allergic/Immunologic: no urticaria, no angioedema. PAST MEDICAL HISTORY: metastatic colon PAST SURGICAL HISTORY: Colostomy, part of the colon removed SOCIAL HISTORY: No alcohol, no drugs, tobacco FAMILY HISTORY: Hypertension Medications and Allergies Allergies Allergy/AdvReac Type Severity Reaction Status Date / Time No Known Allergies Allergy Unverified 05/17/18 15:18 Home Medications Medication Instructions Recorded Confirmed Last Taken Type Omeprazole 20 mg PO DAILY 05/17/18 08/11/18 08/11/18 08:00 History Pregabalin [Lyrica] 150 mg PO QDAY 05/17/18 08/11/18 08/10/18 History Ropinirole HCl [Requip] 2 mg PO QHS 05/17/18 08/11/18 08/10/18 21:00 History Tamsulosin [Flomax] 0.4 mg PO QDAY 05/17/18 08/11/18 08/10/18 08:00 History Tramadol HCl/Acetaminophen 2 each PO Q6HR PRN 05/17/18 08/11/18 Unknown History [Ultracet] Cephalexin [Keflex] 500 mg 08/11/18 08/10/18 History HYDROcodone/APAP 5-325 [[place] 1 each PO Q4-6H PRN 08/11/18 08/11/18 08/11/18 08: 00 History 5/325] Regorafenib [Stivarga] 40 mg 08/11/18 Unknown History Exam - Physical Exam Narrative exam: Gen. appearance: Patient lying in bed, no apparent distress HEENT: Normocephalic, atraumatic, pupils equally round and reactive to light, eyes are , extraocular movement intact, and no sclericterus,. No JVD or thyromegaly or nodule,neck supple, no carotid bruit ,mucous membranes dry, no exudate or erythema Heart: S1, S2, regular rate and rhythm Lungs: Clear bilaterally, breathing comfortable Abdomen: Positive bowel sounds, tender in LLQ, nondistended, no organomegaly Extremity:no edema cyanosis, clubbing Skin no rash, dry Neuro:cranial nerves II-12 intact, speech is fluent, motor and sensory intact - Constitutional Vitals: Temp Pulse Resp BP Pulse Ox 98.2 F 82 16 149/75 96 08/11/18 15:19 08/11/18 15:19 08/11/18 21:58 08/11/18 20:05 08/11/18 20:05 Results - Labs CBC & Chem 7: 08/12/18 05:06 08/12/18 05:06 Labs: Abnormal lab results 08/11/18 08/11/18 Range/Units 19:16 19:16 RBC 5.63 H (3.65-5.03) M/mm3 Hgb 17.3 H (11.8-15.2) gm/dl Hct 52.3 H (35.5-45.6) % RDW 18.2 H (13.2-15.2) % Plt Count 121 L (140-440) K/mm3 Lymph % (Auto) 11.0 L (13.4-35.0) % [place] % (Auto) 13.8 H (0.0-7.3) % Lymph # 1.0 L (1.2-5.4) K/mm3 [place] # 1.2 H (0.0-0.8) K/mm3 Seg Neutrophils % 73.4 H (40.0-70.0) % Creatinine 0.6 L (0.8-1.5) mg/dL Glucose 102 H (75-100) mg/dL Albumin 3.0 L (3.9-5) g/dL - Imaging and Cardiology Chest x-ray: image reviewed CT scan - chest: report reviewed Assessment and Plan Assessment Worsening metastatic colon Cancer Abdominal pain Left pleural effusion Thrombocytopenia Plan Admit to medicine Consult oncology DVT prophalaxis Addendum Possible bowel fistula, consult surgery
[2018-08-12] MEDS ORDERED: ZOFRAN IV PRN (00:44)
[2018-08-12] MEDS ORDERED: SODIUM CHLORIDE FLUSH SYRINGE 10 ML IV PRN (00:44)
[2018-08-12] MEDS ORDERED: TYLENOL PO PRN (00:44)
[2018-08-12 01:48] LABS: Creatine Kinase MB 1.3 ng/mL (0.0-4.0)
--- NOTE | 2018-08-12 02:12 | Cat Scan Report ---
FINAL REPORT PROCEDURE: CT ABDOMEN PELVIS WO CON TECHNIQUE: Computerized axial tomography of the abdomen and pelvis was performed without intravenous contrast. This study is performed without intravascular contrast material and its sensitivity for abdominal and pelvic pathology, including neoplasms, inflammation, abscess, free fluid, thrombosis, arterial dissection and infarction, is reduced compared with a contrast enhanced study. HISTORY: pain COMPARISON: No prior studies are available for comparison. FINDINGS: Visualized lower thorax: Left lower lung opacities are again noted and unchanged from prior study dated 08/11/2018.. Liver: Normal size and attenuation. Spleen: Normal size and attenuation. Gallbladder and biliary system: There has been a cholecystectomy.. Pancreas: Normal. Adrenals: Normal. Kidneys: Normal. GI tract: The stomach is thickened suggesting gastritis. There is no obstruction or mass. There has been bowel surgery. The there is a right lower quadrant ileostomy. There is no obstruction, colitis or enteritis.. Lymph nodes and mesentery: Normal. Vasculature: Normal. Bladder: Normal. Reproductive organs: Normal. Peritoneum: There is pre sacral pelvic soft tissue thickening which could be related to prior surgery. There is focal collection of air in the pre sacral soft tissues posterior to the rectum which could be evidence of a bowel fistula.. Musculoskeletal structures: There is a lytic lesion L4 measuring 2 centimeters. Metastatic lesion not excluded.. Other: None. IMPRESSION: Left lower lung opacities are again noted and unchanged from prior study dated 08/11/2018.. There has been a cholecystectomy.. The stomach is thickened suggesting gastritis. There is no obstruction or mass. There has been bowel surgery. The there is a right lower quadrant ileostomy. There is no obstruction, colitis or enteritis.. There is pre sacral pelvic soft tissue thickening which could be related to prior surgery or radiation treatment.. There is focal collection of air in the pre sacral soft tissues posterior to the rectum which could be evidence of a bowel fistula.. There is a lytic lesion L4 measuring 2 centimeters. Metastatic lesion not excluded.. .
[2018-08-12] MEDS: PERCOCET 5/325 PO PRN ×2 (02:37→09:58)
[2018-08-12 05:24] LABS: Basophils % (Auto) 0.4 % (0.0-1.8); Eosinophils # (Auto) 0.1 K/mm3 (0.0-0.4); Eosinophils % (Auto) 1.3 % (0.0-4.3); Hematocrit 46.1 % (35.5-45.6); Hemoglobin 16.1 gm/dl (11.8-15.2); Lymphocytes # (Auto) 1.1 K/mm3 (1.2-5.4); Lymphocytes % (Auto) 10.5 % (13.4-35.0); Mean Corpuscular HGB Conc 35 % (32-34); Mean Corpuscular Hemoglobin 32 pg (28-32); Mean Corpuscular Volume 90 fl (84-94); Monocytes # (Auto) 1.5 K/mm3 (0.0-0.8); Monocytes % (Auto) 14.7 % (0.0-7.3); Platelet Count 120 K/mm3 (140-440); Red Blood Count 5.12 M/mm3 (3.65-5.03); Red Cell Distribution Width 17.7 % (13.2-15.2)
[2018-08-12 05:56] LABS: BUN/Creatinine Ratio 20; Blood Urea Nitrogen 14 mg/dL (9-20); Calcium 8.8 mg/dL (8.4-10.2); Hemolysis Index 6
[2018-08-12 06:02] LABS: Creatine Kinase MB 1.1 ng/mL (0.0-4.0)
[2018-08-12] MEDS ORDERED: LOVENOX SUB-Q SCH (10:00)
[2018-08-12] MEDS: LYRICA PO SCH (10:24)
[2018-08-12] MEDS: PROTONIX PO SCH (10:24)
[2018-08-12] MEDS: FLOMAX PO SCH (10:25)
[2018-08-12] MEDS: SODIUM CHLORIDE FLUSH SYRINGE 10 ML IV SCH ×2 (10:26→21:20)
[2018-08-12] MEDS ORDERED: MORPHINE IV ONE (13:20)
[2018-08-12] MEDS: KEFLEX PO SCH ×2 (13:54→18:03)
--- NOTE | 2018-08-12 14:23 | Consultation ---
History of Present Illness Consult date: 08/12/18 Chief complaint: back pain, possible fistula - History of present illness History of present illness: 78 yo [place] Citizen speaking M with hx of colon cancer s/p colectomy with end ileostomy, currently on chemotherapy presents to hospital with c/o left hip pain. This pain started greater than one week ago and the patient was found to have an abscess in this location. He went to [facility], which is also where he had colon surgery 6 years ago, and underwent incision and drainage of the abscess. Per daughter, she does not think cultures were obtained but the patient was started on PO abx. He has felt better since then and fever has subsided. However, he is still having pain in the region of the incision and drainage along with drainage of pus. Otherwise, his ostomy is working well and he is tolerating a diet. He has no abdominal pain. Pt is followed by Dr. Fernandes at [facility]. Past History Past Medical History: other (colon ca- metastatic to lung, on chemo; bph, GERD) Past Surgical History: bowel surgery (total colectomy with end ileostomy), Other (port a cath, incision and drainage of abscess) Social history: no significant social history Family history: no significant family history Medications and Allergies Allergies Allergy/AdvReac Type Severity Reaction Status Date / Time No Known Allergies Allergy Unverified 05/17/18 15:18 Home Medications Medication Instructions Recorded Confirmed Last Taken Type Omeprazole 20 mg PO DAILY 05/17/18 08/11/18 08/11/18 08:00 History Pregabalin [Lyrica] 150 mg PO QDAY 05/17/18 08/11/18 08/10/18 History Ropinirole HCl [Requip] 2 mg PO QHS 05/17/18 08/11/18 08/10/18 21:00 History Tamsulosin [Flomax] 0.4 mg PO QDAY 05/17/18 08/11/18 08/10/18 08:00 History Tramadol HCl/Acetaminophen 2 each PO Q6HR PRN 05/17/18 08/11/18 Unknown History [Ultracet] Cephalexin [Keflex] 500 mg 08/11/18 08/10/18 History HYDROcodone/APAP 5-325 [[place] 1 each PO Q4-6H PRN 0908/11/18 08/11/18 08: 00 History 5/325] Regorafenib [Stivarga] 40 mg 08/11/18 Unknown History Active Meds: Active Medications Acetaminophen (Tylenol) 650 mg PO Q4H PRN PRN Reason: Pain MILD(1-3)/Fever >100.5/NOEL Cephalexin (Keflex) 500 mg PO Q6HR [facility] Last Admin: 08/12/18 13:54 Dose: 500 mg Ondansetron HCl (Zofran) 4 mg IV Q8H PRN PRN Reason: Nausea And Vomiting Oxycodone/Acetaminophen (Percocet 5/325) 1 tab PO Q4H PRN PRN Reason: Pain, Moderate (4-6) Last Admin: 08/12/18 09:58 Dose: 1 tab Pantoprazole Sodium (Protonix) 20 mg PO QDAY [facility] Last Admin: 08/12/18 10:24 Dose: 20 mg Pregabalin (Lyrica) 150 mg PO QDAY [facility] Last Admin: 08/12/18 10:24 Dose: 150 mg Ropinirole HCl (Requip) 2 mg PO QHS [facility] Sodium Chloride (Sodium Chloride Flush Syringe 10 Ml) 10 ml IV BID [facility] Last Admin: 08/12/18 10:26 Dose: 10 ml Sodium Chloride (Sodium Chloride Flush Syringe 10 Ml) 10 ml IV PRN PRN PRN Reason: LINE FLUSH Tamsulosin HCl (Flomax) 0.4 mg PO QDAY [facility] Last Admin: 08/12/18 10:25 Dose: 0.4 mg Review of Systems All systems: negative (10 pt ROS performed and negative except for that listed in HPI) Exam Vital Signs Temp Pulse Resp BP Pulse Ox 98.2 F 82 18 159/78 96 08/11/18 15:19 08/11/18 15:19 08/11/18 15:19 08/11/18 15:19 08/11/18 15:19 Narrative exam: Gen: AAOx3. NAD CV: S1, S2+ Resp: even and unlabored Abd: soft, NT, ND. RLQ ostomy - pink mucosa. Peristomal skin is clean and dry, inferiorly there is an area of skin irritation. The entire stoma appliance was removed due to leakage. Skin cleansed with skin wipes and skin prep applied. New wafer and stoma bag applied. Ext; no c/c/e Back: Left lower back/upper gluteal area with pinpoint opening draining pus. Minimal surrounding erythema, mildly TTP. Minimal fluctuance. Wound probed with cotton tip applicator. The wound is at least 2cm deep with 1cm undermining in all directions. 5 cc of purulent fluid expressed and cultures obtained. Packed with one piece of mesalt packing and covered with optifoam dressing. Results - Labs 08/12/18 05:06 08/12/18 05:06 Abnormal lab results 08/11/18 08/11/18 08/12/18 Range/Units 19:16 19:16 05:06 RBC 5.63 H 5.12 H (3.65-5.03) M/mm3 Hgb 17.3 H 16.1 H (11.8-15.2) gm/dl Hct 52.3 H 46.1 H D (35.5-45.6) % MCHC 35 H (32-34) % RDW 18.2 H 17.7 H (13.2-15.2) % Plt Count 121 L 120 L (140-440) K/mm3 Lymph % (Auto) 11.0 L 10.5 L (13.4-35.0) % [place] % (Auto) 13.8 H 14.7 H (0.0-7.3) % Lymph # 1.0 L 1.1 L (1.2-5.4) K/mm3 [place] # 1.2 H 1.5 H (0.0-0.8) K/mm3 Seg Neutrophils % 73.4 H 73.1 H (40.0-70.0) % Creatinine 0.6 L (0.8-1.5) mg/dL Glucose 102 H (75-100) mg/dL Albumin 3.0 L (3.9-5) g/dL 08/12/18 Range/Units 05:06 RBC (3.65-5.03) M/mm3 Hgb (11.8-15.2) gm/dl Hct (35.5-45.6) % MCHC (32-34) % RDW (13.2-15.2) % Plt Count (140-440) K/mm3 Lymph % (Auto) (13.4-35.0) % [place] % (Auto) (0.0-7.3) % Lymph # (1.2-5.4) K/mm3 [place] # (0.0-0.8) K/mm3 Seg Neutrophils % (40.0-70.0) % Creatinine 0.7 L (0.8-1.5) mg/dL Glucose (75-100) mg/dL Albumin (3.9-5) g/dL Diabetes panel 08/11/18 08/12/18 Range/Units 19:16 05:06 Sodium 140 140 (137-145) mmol/L Potassium 4.3 4.3 (3.6-5.0) mmol/L Chloride 100.7 104.5 (98-107) mmol/L Carbon Dioxide 29 25 (22-30) mmol/L BUN 13 14 (9-20) mg/dL Creatinine 0.6 L 0.7 L (0.8-1.5) mg/dL Glucose 102 H 92 (75-100) mg/dL Calcium 9.7 8.8 (8.4-10.2) mg/dL AST 34 (5-40) units/L ALT 26 (7-56) units/L Alkaline Phosphatase 125 (35-129) units/L Total Protein 7.7 (6.3-8.2) g/dL Albumin 3.0 L (3.9-5) g/dL Calcium panel 08/11/18 08/12/18 Range/Units 19:16 05:06 Calcium 9.7 8.8 (8.4-10.2) mg/dL Albumin 3.0 L (3.9-5) g/dL Pituitary panel 08/11/18 08/12/18 Range/Units 19:16 05:06 Sodium 140 140 (137-145) mmol/L Potassium 4.3 4.3 (3.6-5.0) mmol/L Chloride 100.7 104.5 (98-107) mmol/L Carbon Dioxide 29 25 (22-30) mmol/L BUN 13 14 (9-20) mg/dL Creatinine 0.6 L 0.7 L (0.8-1.5) mg/dL Glucose 102 H 92 (75-100) mg/dL Calcium 9.7 8.8 (8.4-10.2) mg/dL Adrenal panel 08/11/18 08/12/18 Range/Units 19:16 05:06 Sodium 140 140 (137-145) mmol/L Potassium 4.3 4.3 (3.6-5.0) mmol/L Chloride 100.7 104.5 (98-107) mmol/L Carbon Dioxide 29 25 (22-30) mmol/L BUN 13 14 (9-20) mg/dL Creatinine 0.6 L 0.7 L (0.8-1.5) mg/dL Glucose 102 H 92 (75-100) mg/dL Calcium 9.7 8.8 (8.4-10.2) mg/dL Total Bilirubin 1.00 (0.1-1.2) mg/dL AST 34 (5-40) units/L ALT 26 (7-56) units/L Alkaline Phosphatase 125 (35-129) units/L Total Protein 7.7 (6.3-8.2) g/dL Albumin 3.0 L (3.9-5) g/dL - Imaging CT scan - abdomen: report reviewed, image reviewed CT scan - pelvis: report reviewed, image reviewed Assessment and Plan 78 yo M with 1. left lower back abscess 2. metastatic colon ca to lung, s/p total colectomy and end ileostomy CT scan reviewed. Possible bowel fistula to back. I feel this in unlikely based on location and patient's history. Plan: 1. wound care daily. packed with mesalt today 2. wound RN consult 3. c/w abx 4. prn PO pain control 5. deep cultures obtained - results pending Thank you for this consultation, please call with questions or concerns.
--- NOTE | 2018-08-12 15:11 | Progress Note ---
Assessment and Plan Metastatic colon Cancer - consulted oncology, supportive care Abdominal pain likely from undelying cancer, gastritis and lumber lytic lesion - medical mx with pain control. PPI b/L Lung mass - metastatic disease - cont nebs as needed Thrombocytopenia - from underlying malignancy - cont to monitor Sacral abscess - s/p I and D from outside facility - cont abx, wound Cx, GS consulted DVT prophalaxis, lovenox Radiological data: CT abdomen/pelvis; Left lower lung opacities are again noted and unchanged from prior study dated 08/11/2018. There has been a cholecystectomy. The stomach is thickened suggesting gastritis. There is no obstruction or mass. There has been bowel surgery. The there is a right lower quadrant ileostomy. There is no obstruction , colitis or enteritis.There is pre sacral pelvic soft tissue thickening which could be related to prior surgery or radiation treatment.. There is focal collection of air in the pre sacral soft tissues posterior to the rectum which could be evidence of a bowel fistula.. There is a lytic lesion L4 measuring 2 centimeters. Metastatic lesion not excluded.. CTA chest: 1. Study somewhat degraded by motion artifact. 2. No evidence of central pulmonary artery emboli. However, segmental pulmonary artery emboli could be missed or overcalled due to motion artifact. 3. Interval increase in size and number of the bilateral pulmonary masses. Some demonstrate necrosis. 4. Partial opacification of left lower lobe bronchials. Whether not this is secondary to retained secretions or tumor is unclear. 5. Cardiomegaly. Subjective Date of service: 08/12/18 Interval history: Pt seen and examined Son at bedside, updated C/o abdominal pain, poor intake Objective - Constitutional Vitals: Vital Signs - 12hr 08/12/18 08/12/18 08/12/18 04:00 05:00 05:51 Pulse Rate 74 71 84 Respiratory 17 23 17 Rate Blood Pressure 130/63 121/58 136/77 O2 Sat by Pulse 90 97 Oximetry 08/12/18 08/12/18 08/12/18 06:01 06:11 06:30 Pulse Rate 108 H 99 H 85 Respiratory 19 20 Rate Blood Pressure 158/93 158/93 O2 Sat by Pulse 93 98 Oximetry 08/12/18 08/12/18 08/12/18 06:40 06:50 07:01 Pulse Rate 87 79 69 Respiratory 18 17 16 Rate Blood Pressure 118/56 118/56 118/57 O2 Sat by Pulse 99 98 96 Oximetry 08/12/18 08/12/18 08/12/18 07:11 07:21 07:31 Pulse Rate 68 67 68 Respiratory 13 13 15 Rate Blood Pressure 118/56 118/56 118/56 O2 Sat by Pulse 98 98 99 Oximetry 08/12/18 08/12/18 08/12/18 07:41 07:51 08:01 Pulse Rate 76 78 66 Respiratory 18 20 14 Rate Blood Pressure 118/56 118/56 122/59 O2 Sat by Pulse 98 98 98 Oximetry 08/12/18 08/12/18 08/12/18 08:11 08:21 08:31 Pulse Rate 69 71 67 Respiratory 16 16 11 L Rate Blood Pressure 122/59 122/59 122/59 O2 Sat by Pulse 99 99 99 Oximetry 08/12/18 08/12/18 08/12/18 08:41 08:51 09:00 Pulse Rate 73 72 82 Respiratory 13 21 18 Rate Blood Pressure 122/59 122/59 111/69 O2 Sat by Pulse 99 98 95 Oximetry 08/12/18 08/12/18 08/12/18 09:11 09:21 09:31 Pulse Rate 79 77 76 Respiratory 12 19 14 Rate Blood Pressure 122/59 122/59 122/59 O2 Sat by Pulse 98 98 98 Oximetry 08/12/18 08/12/18 08/12/18 09:41 09:51 10:00 Pulse Rate 81 94 H 101 H Respiratory 15 16 21 Rate Blood Pressure 122/59 122/59 129/60 O2 Sat by Pulse 98 97 95 Oximetry 08/12/18 08/12/18 08/12/18 10:11 10:21 10:31 Pulse Rate 86 95 H 96 H Respiratory 19 16 19 Rate Blood Pressure 129/60 129/60 129/60 O2 Sat by Pulse 96 92 93 Oximetry 08/12/18 08/12/18 08/12/18 10:41 10:51 11:00 Pulse Rate 79 80 85 Respiratory 15 19 19 Rate Blood Pressure 129/60 129/60 121/76 O2 Sat by Pulse 97 95 98 Oximetry 08/12/18 08/12/18 08/12/18 11:11 11:21 11:31 Pulse Rate 86 82 77 Respiratory 21 25 H 16 Rate Blood Pressure 121/76 121/76 121/76 O2 Sat by Pulse 98 98 98 Oximetry 08/12/18 08/12/18 08/12/18 11:37 11:41 11:51 Pulse Rate 79 82 Respiratory 13 18 Rate Blood Pressure 121/76 121/76 O2 Sat by Pulse 98 98 97 Oximetry 08/12/18 08/12/18 08/12/18 12:00 12:11 12:21 Pulse Rate 75 77 91 H Respiratory 15 14 19 Rate Blood Pressure 124/60 124/60 124/60 O2 Sat by Pulse 92 97 98 Oximetry 08/12/18 08/12/18 08/12/18 12:31 12:41 12:51 Pulse Rate 95 H 99 H 95 H Respiratory 15 21 20 Rate Blood Pressure 124/60 124/60 124/60 O2 Sat by Pulse 94 96 94 Oximetry 08/12/18 08/12/18 08/12/18 13:01 13:11 13:21 Pulse Rate 80 94 H 82 Respiratory 21 17 20 Rate Blood Pressure 124/60 124/60 124/60 O2 Sat by Pulse 95 Oximetry 08/12/18 08/12/18 08/12/18 13:31 13:41 13:51 Pulse Rate 76 74 74 Respiratory 18 19 18 Rate Blood Pressure 124/60 124/60 124/60 O2 Sat by Pulse 93 96 97 Oximetry 08/12/18 08/12/18 14:00 14:11 Pulse Rate 70 76 Respiratory 15 19 Rate Blood Pressure 126/55 126/55 O2 Sat by Pulse 88 86 Oximetry General appearance: Present: no acute distress, other (elderly) - EENT Eyes: PERRL, EOM intact ENT: hearing intact, clear oral mucosa Ears: bilateral: normal - Neck Neck: supple, normal ROM - Respiratory Respiratory effort: normal Respiratory: bilateral: CTA - Cardiovascular Rhythm: regular Heart Sounds: Present: S1 & S2. Absent: gallop, rub Extremities: pulses intact, No edema, normal color, Full ROM - Gastrointestinal General gastrointestinal: Present: soft, tender (diffuse, mild), non-distended, normal bowel sounds - Integumentary Integumentary: clear, warm, dry - Musculoskeletal Musculoskeletal: 1, strength equal bilaterally - Neurologic Neurologic: moves all extremities - Psychiatric Psychiatric: memory intact, appropriate mood/affect, intact judgment & insight - Labs CBC & Chem 7: 08/12/18 05:06 08/12/18 05:06 Labs: Abnormal lab results 08/11/18 08/11/18 08/12/18 Range/Units 19:16 19:16 05:06 RBC 5.63 H 5.12 H (3.65-5.03) M/mm3 Hgb 17.3 H 16.1 H (11.8-15.2) gm/dl Hct 52.3 H 46.1 H D (35.5-45.6) % MCHC 35 H (32-34) % RDW 18.2 H 17.7 H (13.2-15.2) % Plt Count 121 L 120 L (140-440) K/mm3 Lymph % (Auto) 11.0 L 10.5 L (13.4-35.0) % [place] % (Auto) 13.8 H 14.7 H (0.0-7.3) % Lymph # 1.0 L 1.1 L (1.2-5.4) K/mm3 [place] # 1.2 H 1.5 H (0.0-0.8) K/mm3 Seg Neutrophils % 73.4 H 73.1 H (40.0-70.0) % Creatinine 0.6 L (0.8-1.5) mg/dL Glucose 102 H (75-100) mg/dL Albumin 3.0 L (3.9-5) g/dL 08/12/18 Range/Units 05:06 RBC (3.65-5.03) M/mm3 Hgb (11.8-15.2) gm/dl Hct (35.5-45.6) % MCHC (32-34) % RDW (13.2-15.2) % Plt Count (140-440) K/mm3 Lymph % (Auto) (13.4-35.0) % [place] % (Auto) (0.0-7.3) % Lymph # (1.2-5.4) K/mm3 [place] # (0.0-0.8) K/mm3 Seg Neutrophils % (40.0-70.0) % Creatinine 0.7 L (0.8-1.5) mg/dL Glucose (75-100) mg/dL Albumin (3.9-5) g/dL
[2018-08-12] MEDS: REQUIP PO SCH (21:19)
--- NOTE | 2018-08-12 22:57 | Event Note ---
Date: 08/12/18 h/o stage IV colon with lung lesions bone mets oncologist - ? Dr Fernandes - [facility] I will ask staff - if that team comes to this hospital - if yes - they can take over for continuity of care dictated - [phone]
[2018-08-13] MEDS: KEFLEX PO SCH ×3 (00:46→11:39)
[2018-08-13] MEDS: PERCOCET 5/325 PO PRN ×4 (03:43→22:56)
[2018-08-13] MEDS: PROTONIX PO SCH (11:38)
[2018-08-13] MEDS: LYRICA PO SCH (11:38)
[2018-08-13] MEDS: FLOMAX PO SCH (11:39)
[2018-08-13] MEDS: SODIUM CHLORIDE FLUSH SYRINGE 10 ML IV SCH ×2 (11:42→21:34)
--- NOTE | 2018-08-13 12:09 | Progress Note ---
Assessment and Plan 78 yo M with 1. left lower back abscess r/o bowel fistula 2. metastatic colon ca to lung, s/p total colectomy and end ileostomy CT scan reviewed. Possible bowel fistula to back. I feel this in unlikely based on location and patient's history. Plan: 1. wound care daily 2. wound RN consult 3. c/w abx, change to IV zosyn and dc Keflex as patient failed PO abx as outpatient. 4. prn PO pain control 5. wound culture prelim - gram neg rods, - final results pending 6. will review CT with in house radiologist in am. Thank you for this consultation, please call with questions or concerns. Subjective Date of service: 08/13/18 Narrative: Pt seen and examined. No overnight events. Tolerating diet. Afebrile. Objective Vital Signs - 12hr 08/13/18 08/13/18 05:32 08:57 Temperature 98.1 F 98.4 F Pulse Rate 76 91 H Respiratory 20 18 Rate Blood Pressure 125/58 102/51 O2 Sat by Pulse 93 96 Oximetry - General physical appearance Narrative Exam: Gen: AAOx3. NAD CV: s1, s2+ resp: even and unlabored Ext: no c/c/e Back: Left lower back dressing removed and packing removed. large amount of purulent drainage from wound. Wound probed with cotton tip applicator and tracks 7 cm deep in the 7-8 oclock direction. All purulent fluid expressed and wound irrigated with salined. No additional purulent. Minimal surrounding periwound erythema. Wound packed with one piece of mesalt and covered with coversite dressing. - Labs 08/12/18 05:06 08/12/18 05:06
--- NOTE | 2018-08-13 13:26 | Progress Note ---
Assessment and Plan Metastatic colon Cancer - s/p total colectomy and end ileostomy - consulted oncology, supportive care Abdominal pain likely from undelying cancer, gastritis and lumber lytic lesion - medical mx with pain control. PPI b/L Lung mass - metastatic disease - cont nebs as needed Thrombocytopenia - from underlying malignancy - cont to monitor lower back abscess - s/p I and D from outside facility - cont abx, wound Cx, GS consulted to r/o fistula DVT prophalaxis, lovenox Radiological data: CT abdomen/pelvis; Left lower lung opacities are again noted and unchanged from prior study dated 08/11/2018. There has been a cholecystectomy. The stomach is thickened suggesting gastritis. There is no obstruction or mass. There has been bowel surgery. The there is a right lower quadrant ileostomy. There is no obstruction , colitis or enteritis.There is pre sacral pelvic soft tissue thickening which could be related to prior surgery or radiation treatment.. There is focal collection of air in the pre sacral soft tissues posterior to the rectum which could be evidence of a bowel fistula.. There is a lytic lesion L4 measuring 2 centimeters. Metastatic lesion not excluded.. CTA chest: 1. Study somewhat degraded by motion artifact. 2. No evidence of central pulmonary artery emboli. However, segmental pulmonary artery emboli could be missed or overcalled due to motion artifact. 3. Interval increase in size and number of the bilateral pulmonary masses. Some demonstrate necrosis. 4. Partial opacification of left lower lobe bronchials. Whether not this is secondary to retained secretions or tumor is unclear. 5. Cardiomegaly. Subjective Date of service: 08/13/18 Interval history: Pt seen and examined Son at bedside, updated improved abdominal pain, poor intake Objective - Exam Narrative Exam: General appearance: Present: no acute distress, other (elderly) - EENT Eyes: PERRL, EOM intact ENT: hearing intact, clear oral mucosa Ears: bilateral: normal - Neck Neck: supple, normal ROM - Respiratory Respiratory effort: normal Respiratory: bilateral: CTA - Cardiovascular Rhythm: regular Heart Sounds: Present: S1 & S2. Absent: gallop, rub Extremities: pulses intact, No edema, normal color, Full ROM - Gastrointestinal General gastrointestinal: Present: soft, tender (diffuse, mild), non-distended, normal bowel sounds - Integumentary Integumentary: clear, warm, dry - Musculoskeletal Musculoskeletal: 1, strength equal bilaterally - Neurologic Neurologic: moves all extremities - Psychiatric Psychiatric: memory intact, appropriate mood/affect, intact judgment & insight - Constitutional Vitals: Vital Signs - 12hr 08/13/18 08/13/18 05:32 08:57 Temperature 98.1 F 98.4 F Pulse Rate 76 91 H Respiratory 20 18 Rate Blood Pressure 125/58 102/51 O2 Sat by Pulse 93 96 Oximetry - Labs CBC & Chem 7: 08/12/18 05:06 08/12/18 05:06
--- NOTE | 2018-08-13 16:23 | Progress Note ---
Assessment and Plan - Patient Problems (1) Acute dyspnea Current Visit: Yes Status: Acute Plan to address problem: supportive care. (2) Lung nodules Current Visit: No Status: Acute Plan to address problem: This is part of his mets. (3) Colon cancer Current Visit: Yes Status: Acute Plan to address problem: See notes above. (4) Lower back pain Current Visit: Yes Status: Acute Plan to address problem: This is probably due to his cancer, will need pain management. Subjective Date of service: 08/13/18 Principal diagnosis: colon cancer. Interval history: I am covering DR Seay/ group. Patient seen/examined, records reviewed, no family around. Previous notes indicates that he is a long time patient of [facility] , and I have asked the nurse /staff to find out if they come here so as to assume care for continuity.Other celis, he is complaing of lower back pain. Notes /labs reviewed also.He will need pain control in the mean time.and monitor his labs. Objective - Constitutional Vitals: Vital Signs - 12hr 08/13/18 08/13/18 05:32 08:57 Temperature 98.1 F 98.4 F Pulse Rate 76 91 H Respiratory 20 18 Rate Blood Pressure 125/58 102/51 O2 Sat by Pulse 93 96 Oximetry General appearance: Present: mild distress - EENT Eyes: PERRL, EOM intact ENT: hearing intact, clear oral mucosa Ears: bilateral: normal - Neck Neck: supple, normal ROM - Respiratory Respiratory effort: normal Respiratory: bilateral: CTA - Breasts Breasts: deferred - Cardiovascular Rhythm: regular Heart Sounds: Present: S1 & S2. Absent: gallop, rub Extremities: pulses intact, No edema, normal color, Full ROM - Gastrointestinal General gastrointestinal: Present: soft, non-tender, non-distended, normal bowel sounds - Genitourinary Male genitourinary: deferred - Integumentary Integumentary: clear, warm, dry - Musculoskeletal Musculoskeletal: 1, strength equal bilaterally - Neurologic Neurologic: moves all extremities - Psychiatric Psychiatric: appropriate mood/affect - Labs CBC & Chem 7: 08/12/18 05:06 08/12/18 05:06
[2018-08-13] MEDS: DUONEB *Not for PRN Use IH SCH ×2 (16:26→19:50)
[2018-08-13] MEDS: ZOSYN/NS 4.5GM/100ML 4.5 GM/100 ML VIAL IV SCH ×2 (18:49→21:34)
[2018-08-13] MEDS ORDERED: HYDROGEN PEROXIDE TP ONE (19:25)
[2018-08-13] MEDS: REQUIP PO SCH (21:34)
--- NOTE | 2018-08-14 02:03 | Consultation ---
LOCATION OF THE PATIENT: [address] [place] [address]. REASON FOR CONSULTATION: Stage 4 colon cancer. Oncologist is outside. Details not clear. HISTORY OF PRESENT ILLNESS: I saw the patient, a 78-year-old male in the medical floor. The patient has history of colon cancer with metastasis. He came to us because of shortness of breath and left posterior pelvic pain and a site of previous skin infection. His shortness of breath started 1 day prior to admission and the pelvic pain has been present for a week. The patient also has history of muscle ache, shoulder pain, back pain, lip pain and tongue pain. Most of the information comes from the medical record and the nursing staff. The patient had a pelvic abscess, for which drainage was done by surgical team. In April, the patient was seen by Dr. Schaefer and there is a note which mentioned that the patient was on Xeloda. The patient does not know primary oncologist. Dr. Immanuel Camacho is with surgical team involved outside of [place]. REVIEW OF SYSTEMS: As above. PAST MEDICAL HISTORY: CA with mets to the lungs. PAST SURGICAL HISTORY: Gallbladder surgery, colostomy. SOCIAL HISTORY: Ex-smoker. MEDICATIONS AT THIS TIME: Include Keflex, Protonix, Lyrica. PHYSICAL EXAMINATION: VITAL SIGNS: Temperature 98.2, pulse 82, respirations 17, BP 139/69. No pallor. No icterus. LYMPH NODES: No neck lymph nodes. HEART: S1, S2. LUNGS: Clear to auscultation anteriorly. ABDOMEN: Soft. Colostomy present. EXTREMITIES: No calf tenderness. : I did not examine the perineal area. NEUROLOGIC: Alert, awake, follows commands appropriately, moving all extremities. LABORATORY DATA: White cell 10, hemoglobin 16, MCV is 90. Platelet is 120, potassium 4.3, creatinine 0.7. RADIOLOGY: CT abdomen done on 08/12/[address] chest was done on 08/11/2018. CT abdomen shows possible gastritis. No obstruction or mass. Presacral pelvic soft tissue, lytic lesion L4, metastatic cannot be excluded. CTA chest, motion artifact. No central PE, interval increase in size and number of bilateral pulmonary mass. ASSESSMENT AND PLAN: 1. History of colon cancer. 2. Bone abnormality, possible bone mets with lung abnormality. 3. History of lung mets. 4. The patient was on Xeloda at one time. Details of chemotherapy unclear. The patient follows outside oncologist. 5. Admitted with shortness of breath. CTA, no central PE. 6. Perineal abnormalities, surgical team, Dr. Colby follows the patient and there is a question if the patient has fistula. There is information that the patient's oncologist is Dr. Fernandes at [facility]. 7. Thrombocytopenia. This may be secondary to ____. I will follow the patient during inpatient stay and Dr. Johnson has agreed to cover me for a short time. If [facility] team comes to the hospital, I will ____. JOB# [id number] SUAD/NTS
[2018-08-14] MEDS: DUONEB *Not for PRN Use IH SCH ×4 (02:17→21:09)
[2018-08-14] MEDS: ZOSYN/NS 4.5GM/100ML 4.5 GM/100 ML VIAL IV SCH ×2 (05:59→21:15)
[2018-08-14] MEDS: PERCOCET 5/325 PO PRN ×2 (10:09→21:29)
[2018-08-14] MEDS: LYRICA PO SCH (10:09)
[2018-08-14] MEDS: FLOMAX PO SCH (10:10)
[2018-08-14] MEDS: PROTONIX PO SCH (10:10)
[2018-08-14] MEDS: SODIUM CHLORIDE FLUSH SYRINGE 10 ML IV SCH ×2 (10:15→21:29)
[2018-08-14] MEDS ORDERED: REGORAFENIB 40 MG PO SCH (12:30)
--- NOTE | 2018-08-14 16:41 | Event Note ---
Date: 08/14/18 Patients wound growing ecoli - sensitive to zosyn. apartment maintenance supervisor notes/photos noted and management discussed. Continue packing changes daily. Reviewed CT A/P with radiologist. There is no fistula between the bowel and the wound of the left lower back.
--- NOTE | 2018-08-14 17:48 | Progress Note ---
Assessment and Plan Metastatic colon Cancer - s/p total colectomy and end ileostomy - consulted oncology, supportive care Abdominal pain likely from undelying cancer, gastritis and lumber lytic lesion - medical mx with pain control. PPI b/L Lung mass - metastatic disease - cont nebs as needed Thrombocytopenia - from underlying malignancy - cont to monitor lower back abscess - s/p I and D from outside facility - cont zosyn, wound Cx growing ESBL, - contact isolation, consult ID - GS consulted and ruled out bowel fistula DVT prophalaxis, lovenox Radiological data: CT abdomen/pelvis; Left lower lung opacities are again noted and unchanged from prior study dated 08/11/2018. There has been a cholecystectomy. The stomach is thickened suggesting gastritis. There is no obstruction or mass. There has been bowel surgery. The there is a right lower quadrant ileostomy. There is no obstruction , colitis or enteritis.There is pre sacral pelvic soft tissue thickening which could be related to prior surgery or radiation treatment.. There is focal collection of air in the pre sacral soft tissues posterior to the rectum which could be evidence of a bowel fistula.. There is a lytic lesion L4 measuring 2 centimeters. Metastatic lesion not excluded.. CTA chest: 1. Study somewhat degraded by motion artifact. 2. No evidence of central pulmonary artery emboli. However, segmental pulmonary artery emboli could be missed or overcalled due to motion artifact. 3. Interval increase in size and number of the bilateral pulmonary masses. Some demonstrate necrosis. 4. Partial opacification of left lower lobe bronchials. Whether not this is secondary to retained secretions or tumor is unclear. 5. Cardiomegaly. Subjective Date of service: 08/14/18 Principal diagnosis: colon cancer. Interval history: Pt seen and examined Son at bedside, updated improved abdominal pain, poor intake Objective - Exam Narrative Exam: General appearance: Present: no acute distress, other (elderly) - EENT Eyes: PERRL, EOM intact ENT: hearing intact, clear oral mucosa Ears: bilateral: normal - Neck Neck: supple, normal ROM - Respiratory Respiratory effort: normal Respiratory: bilateral: CTA - Cardiovascular Rhythm: regular Heart Sounds: Present: S1 & S2. Absent: gallop, rub Extremities: pulses intact, No edema, normal color, Full ROM - Gastrointestinal General gastrointestinal: Present: soft, nontender, non-distended, normal bowel sounds - Integumentary Integumentary: clear, warm, dry - Musculoskeletal Musculoskeletal: 1, strength equal bilaterally - Neurologic Neurologic: moves all extremities - Psychiatric Psychiatric: memory intact, appropriate mood/affect, intact judgment & insight - Constitutional Vitals: Vital Signs - 12hr 08/14/18 08/14/18 08/14/18 07:32 07:42 09:42 Temperature 97.3 F L Pulse Rate 88 Pulse Rate [ 74 83 Bilateral Throughout] Respiratory 18 Rate Respiratory 18 18 Rate [Bilateral Throughout] Respiratory Rate [Sacrum] Blood Pressure 139/59 [Left] O2 Sat by Pulse 83 L 98 Oximetry 08/14/18 08/14/18 08/14/18 10:00 10:09 11:45 Temperature 97.3 F L Pulse Rate 88 87 Pulse Rate [ Bilateral Throughout] Respiratory 18 18 Rate Respiratory Rate [Bilateral Throughout] Respiratory 20 Rate [Sacrum] Blood Pressure 115/59 [Left] O2 Sat by Pulse 87 99 Oximetry 08/14/18 08/14/18 13:14 13:24 Temperature Pulse Rate Pulse Rate [ 94 H 105 H Bilateral Throughout] Respiratory Rate Respiratory 18 18 Rate [Bilateral Throughout] Respiratory Rate [Sacrum] Blood Pressure [Left] O2 Sat by Pulse Oximetry - Labs CBC & Chem 7: 08/12/18 05:06 08/12/18 05:06
--- NOTE | 2018-08-14 19:08 | Progress Note ---
Assessment and Plan - Patient Problems (1) Acute dyspnea Current Visit: Yes Status: Acute Plan to address problem: supportive care. (2) Lung nodules Current Visit: No Status: Acute Plan to address problem: This is part of his mets. (3) Colon cancer Current Visit: Yes Status: Acute Plan to address problem: See notes above. (4) Lower back pain Current Visit: Yes Status: Acute Plan to address problem: This is probably due to his cancer, will need pain management. Subjective Date of service: 08/14/18 Principal diagnosis: colon cancer. Interval history: I am covering DR Seay/PM group. Patient seen/examined, records reviewed, no family around. Previous notes indicates that he is a long time patient of [facility] , and I have asked the nurse /staff to find out if they come here so as to assume care for continuity.Other celis, he is complaing of lower back pain. Notes /labs reviewed also.He will need pain control in the mean time.and monitor his labs. Patient seen, resting in bed, labs reviewed.No new issues at this time Objective - Constitutional Vitals: Vital Signs - 12hr 08/14/18 08/14/18 08/14/18 07:32 07:42 09:42 Temperature 97.3 F L Pulse Rate 88 Pulse Rate [ 74 83 Bilateral Throughout] Respiratory 18 Rate Respiratory 18 18 Rate [Bilateral Throughout] Respiratory Rate [Sacrum] Blood Pressure 139/59 [Left] O2 Sat by Pulse 83 L 98 Oximetry 08/14/18 08/14/18 08/14/18 10:00 10:09 11:45 Temperature 97.3 F L Pulse Rate 88 87 Pulse Rate [ Bilateral Throughout] Respiratory 18 18 Rate Respiratory Rate [Bilateral Throughout] Respiratory 20 Rate [Sacrum] Blood Pressure 115/59 [Left] O2 Sat by Pulse 87 99 Oximetry 08/14/18 08/14/18 13:14 13:24 Temperature Pulse Rate Pulse Rate [ 94 H 105 H Bilateral Throughout] Respiratory Rate Respiratory 18 18 Rate [Bilateral Throughout] Respiratory Rate [Sacrum] Blood Pressure [Left] O2 Sat by Pulse Oximetry General appearance: Present: mild distress, well-nourished - EENT Eyes: PERRL, EOM intact ENT: hearing intact, clear oral mucosa Ears: bilateral: normal - Neck Neck: supple, normal ROM - Respiratory Respiratory effort: normal Respiratory: bilateral: CTA - Breasts Breasts: deferred - Cardiovascular Rhythm: regular Heart Sounds: Present: S1 & S2. Absent: gallop, rub Extremities: pulses intact, No edema, normal color, Full ROM - Gastrointestinal General gastrointestinal: Present: soft, non-tender, non-distended, normal bowel sounds Rectal Exam: deferred - Genitourinary Male genitourinary: deferred - Integumentary Integumentary: clear, warm, dry - Musculoskeletal Musculoskeletal: 1, strength equal bilaterally - Neurologic Neurologic: moves all extremities - Psychiatric Psychiatric: appropriate mood/affect - Labs CBC & Chem 7: 08/12/18 05:06 08/12/18 05:06
[2018-08-14] MEDS: REQUIP PO SCH (21:28)
[2018-08-14] MEDS ORDERED: PROVENTIL IH PRN (21:35)
[2018-08-15] MEDS: ZOSYN/NS 4.5GM/100ML 4.5 GM/100 ML VIAL IV SCH ×2 (05:44)
[2018-08-15 06:04] LABS: Hematocrit 44.7 % (35.5-45.6); Hemoglobin 14.8 gm/dl (11.8-15.2); Mean Corpuscular HGB Conc 33 % (32-34); Mean Corpuscular Hemoglobin 31 pg (28-32); Mean Corpuscular Volume 93 fl (84-94); Platelet Count 120 K/mm3 (140-440); Red Blood Count 4.82 M/mm3 (3.65-5.03); Red Cell Distribution Width 17.7 % (13.2-15.2)
--- NOTE | 2018-08-15 07:23 | Consultation ---
History of Present Illness - Reason for Consult Consult date: 08/15/18 ESBL E coli in wound cx Requesting physician: JOSE PORTER - History of Present Illness 78 year old man with history of metastatic colon cancer s/p total colectomy and end ileostomy, s/p chemo in April 2018 admitted on 08/11/18 due to 24 hour- history of shortness of breath. Patient is not able to communicate in [place]. Attempt to call family failed. History was taken from review of records. Of note , patient was admitted 05/17/18-05/20/18 due to fever, chills, fatigue, diarrhea, painful blisters on his lower lip and a non-productive cough. Patient was seen by Hematology and noted to have metastatic disease and not septic emboli. C.Diff studies were negative. the patient was noted to have thrombocytopenia leading to the recommendation to hold xeloda. In the ED, temp 98.2, HR 82, R 18, BP 159/78. WBC 8.8. Hg 17.3. Plat 121. Creat 0.6. Chest CTA showed no evidence of central pulmonary artery emboli. However, segmental pulmonary artery emboli could be missed or overcalled due to motion artifact, interval increase in size and number of the bilateral pulmonary masses , some demonstrate necrosis and partial opacification of left lower lobe bronchials. CT ab/pelvis showed left lower lung opacities are again noted and unchanged from prior study dated 08/11/2018.. There has been a cholecystectomy.. The stomach is thickened suggesting gastritis. There is no obstruction or mass. There has been bowel surgery. The there is a right lower quadrant ileostomy. There is no obstruction, colitis or enteritis.. There is pre sacral pelvic soft tissue thickening which could be related to prior surgery or radiation treatment.. There is focal collection of air in the pre sacral soft tissues posterior to the rectum which could be evidence of a bowel fistula.There is a lytic lesion L4 measuring 2 centimeters. Metastatic lesion not excluded.. . Microbiology: Wound cultures: 08/12 ESBL E coli Current Antimicrobials: Zosyn Previous Antimicrobials: Past History Past Medical History: other (colon ca- metastatic to lung, on chemo; bph, GERD) Past Surgical History: bowel surgery (total colectomy with end ileostomy), Other (port a cath, incision and drainage of abscess) Social history: no significant social history Family history: no significant family history Medications and Allergies Allergies Allergy/AdvReac Type Severity Reaction Status Date / Time No Known Allergies Allergy Unverified 05/17/18 15:18 Home Medications Medication Instructions Recorded Confirmed Last Taken Type Omeprazole 20 mg PO DAILY 05/17/18 08/11/18 08/11/18 08:00 History Pregabalin [Lyrica] 150 mg PO QDAY 05/17/18 08/11/18 08/10/18 History Ropinirole HCl [Requip] 2 mg PO QHS 05/17/18 08/11/18 08/10/18 21:00 History Tamsulosin [Flomax] 0.4 mg PO QDAY 05/17/18 08/11/18 08/10/18 08:00 History Tramadol HCl/Acetaminophen 2 each PO Q6HR PRN 05/17/18 08/11/18 Unknown History [Ultracet] Cephalexin [Keflex] 500 mg PO DAILY 08/11/18 08/14/18 08/10/18 History HYDROcodone/APAP 5-325 [[place] 1 each PO Q4-6H PRN 08/11/18 08/11/18 08/11/18 08: 00 History 5/325] Regorafenib [Stivarga] 40 mg PO DAILY 08/11/18 08/14/18 Unknown History Active Meds: Active Medications Acetaminophen (Tylenol) 650 mg PO Q4H PRN PRN Reason: Pain MILD(1-3)/Fever >100.5/NOEL Last Admin: 08/13/18 18:47 Dose: 325 mg Albuterol (Proventil) 2.5 mg IH Q4HRT PRN PRN Reason: Shortness Of Breath Albuterol/Ipratropium (Duoneb *Not For Prn Use*) 1 ampul IH TIDRT ANNMARIE Piperacillin Sod/Tazobactam Sod (Zosyn/Ns 4.5gm/100ml) 4.5 gm in 100 mls @ 200 mls/hr IV Q8HR ANNMARIE; Protocol Last Admin: 08/15/18 05:44 Dose: 200 mls/hr Miscellaneous Medication (Regorafenib [Stivarga]) 40 mg PO DAILY ANNMARIE Ondansetron HCl (Zofran) 4 mg IV Q8H PRN PRN Reason: Nausea And Vomiting Last Admin: 08/13/18 03:43 Dose: 4 mg Oxycodone/Acetaminophen (Percocet 5/325) 1 tab PO Q4H PRN PRN Reason: Pain, Moderate (4-6) Last Admin: 08/14/18 21:29 Dose: 1 tab Pantoprazole Sodium (Protonix) 20 mg PO QDAY [facility] Last Admin: 08/14/18 10:10 Dose: 20 mg Pregabalin (Lyrica) 150 mg PO QDAY [facility] Last Admin: 08/14/18 10:09 Dose: 150 mg Ropinirole HCl (Requip) 2 mg PO QHS [facility] Last Admin: 08/14/18 21:28 Dose: 2 mg Sodium Chloride (Sodium Chloride Flush Syringe 10 Ml) 10 ml IV BID [facility] Last Admin: 08/14/18 21:29 Dose: 10 ml Sodium Chloride (Sodium Chloride Flush Syringe 10 Ml) 10 ml IV PRN PRN PRN Reason: LINE FLUSH Tamsulosin HCl (Flomax) 0.4 mg PO QDAY [facility] Last Admin: 08/14/18 10:10 Dose: 0.4 mg Review of Systems ROS unobtainable: due to mental status All systems: negative (limited due language barrier) Physical Examination - Physical Exam Narrative exam: General appearance: Alert in NAD, conversant Eyes: anicteric sclerae, moist conjunctivae; no lid-lag; PERRLA HENT: Atraumatic; oropharynx clear with moist mucous membranes and no mucosal ulcerations/no oral thrush; normal hard and soft palate. Normal external ears. Neck: Trachea midline; supple, no thyromegaly or lymphadenopathy Lungs: CTA, with normal respiratory effort and no intercostal retractions CV: RRR, no murmurs Abdomen: Soft, non-tender; no masses or hepatosplenomegaly Extremities: No peripheral edema or extremity lymphadenopathy Skin: + LEFT BUTTOCK/SACRAL AREA WOUND MEASURES 1X1X6. ERYTHEMA AND PURULENT DRAINAGE STILL NOTED. AREA IS VERY TENDER TO TOUCH. Psych: Appropriate affect, alert and oriented to person, place and time. Neuro: alert and oriented x 3. Moving all extermities Lines: left port w/o erythema - Constitutional Vitals: Vital Signs Temp Pulse Resp BP Pulse Ox 98.1 F 78 20 122/62 100 08/15/18 04:21 08/15/18 04:25 08/15/18 04:21 08/15/18 04:21 08/15/18 04:25 Temperature -Last 24 Hours Temperature 98.1 F Temperature 99.0 F Temperature 99.3 F Temperature 97.3 F Temperature 97.3 F Results - Labs CBC & Chem 7: 08/15/18 05:07 08/12/18 05:06 Labs: Abnormal lab results 08/15/18 Range/Units 05:07 WBC 11.4 H (4.5-11.0) K/mm3 RDW 17.7 H (13.2-15.2) % Plt Count 120 L (140-440) K/mm3 Assessment and Plan Assessment: 1) Left buttock/Presacral abscess +/- ?recto-cutanous fistula: -CT ab/pelvis showed pre sacral pelvic soft tissue thickening which could be related to prior surgery or radiation treatment. There is focal collection of air in the pre sacral soft tissues posterior to the rectum which could be evidence of a bowel fistula.There is a lytic lesion L4 measuring 2 centimeters. Metastatic lesion not excluded -Presacral Wound cultures 08/12 ESBL E coli -per surgery no fistula 2) Metastatic colon cancer s/p total colectomy and end ileostomy, s/p chemo in April 2018 3) Shortness of breath: from mets -Chest CTA showed no evidence of central pulmonary artery emboli. However, segmental pulmonary artery emboli could be missed or overcalled due to motion artifact, interval increase in size and number of the bilateral pulmonary masses , some demonstrate necrosis and partial opacification of left lower lobe bronchials 4) Thrombocytopenia Plan: -continue contact isolation -stop zosyn -start meropenem -continue wound care -check CRP -upon discharge will do ertapenem 1 g IV qday total 10 days until 08/24/18 via port. Order sent to rn case management for approval. Thank you for your consultation, will follow up with you. Luh Nolan MD Infectious Diseases Specialist [facility], [facility] M [phone] O [phone]
[2018-08-15] MEDS: PERCOCET 5/325 PO PRN ×4 (08:26→21:58)
[2018-08-15] MEDS: DUONEB *Not for PRN Use IH SCH ×3 (08:44→20:10)
[2018-08-15] MEDS: PROTONIX PO SCH (09:13)
[2018-08-15] MEDS: LYRICA PO SCH (09:13)
[2018-08-15] MEDS: FLOMAX PO SCH (09:13)
[2018-08-15] MEDS: SODIUM CHLORIDE FLUSH SYRINGE 10 ML IV SCH ×2 (09:15→22:00)
[2018-08-15] MEDS: MERREM 1,000 MG in NACL 0.9% 100 ML IV SCH ×3 (12:43→22:01)
--- NOTE | 2018-08-15 15:12 | Progress Note ---
Assessment and Plan Assessment and plan: LT buttock abscess - s/p I and D from outside facility - wound Cx growing ESBL, - Antibiotic changed to meropenem - ID recommended 10 days of ertapenem on discharge, PICC line order placed Metastatic colon Cancer - s/p total colectomy and end ileostomy - cont supportive care Abdominal pain likely from undelying cancer, gastritis and lumber lytic lesion - medical mx with pain control and PPI b/L Lung mass 2/2 metastatic disease - cont nebs as needed Chronic thrombocytopenia - from underlying malignancy, stable - cont to monitor Encephalopathy, likely chronic, stable DVT prophalaxis, lovenox Disp: For possible discharge in 24 - 48 hours after PICC line placement History Interval history: Patient complaining of left buttock pain Hospitalist Physical - Constitutional Vitals: Temp Pulse Resp BP Pulse Ox 98.6 F 100 H 18 131/65 96 08/15/18 12:36 08/15/18 13:05 08/15/18 13:05 08/15/18 12:36 08/15/18 12:36 General appearance: Present: no acute distress - EENT Eyes: Present: PERRL, EOM intact ENT: hearing intact, clear oral mucosa - Neck Neck: Present: supple - Respiratory Respiratory effort: normal Respiratory: bilateral: CTA - Cardiovascular Rhythm: other (tachycardia with regular rhythm) Heart Sounds: Present: S1 & S2 - Extremities Extremities: No edema - Abdominal General gastrointestinal: soft, tender (lower abdomen), non-distended, normal bowel sounds, other (colostomy bag noted) - Neurologic Neurologic: other (patient is awake but oriented to person only) Results - Labs CBC & Chem 7: 08/15/18 05:07 08/12/18 05:06 Labs: Laboratory Last Values WBC 11.4 K/mm3 (4.5-11.0) H 08/15/18 05:07 RBC 4.82 M/mm3 (3.65-5.03) 08/15/18 05:07 Hgb 14.8 gm/dl (11.8-15.2) 08/15/18 05:07 Hct 44.7 % (35.5-45.6) 08/15/18 05:07 MCV 93 fl (84-94) 08/15/18 05:07 MCH 31 pg (28-32) 08/15/18 05:07 MCHC 33 % (32-34) 08/15/18 05:07 RDW 17.7 % (13.2-15.2) H 08/15/18 05:07 Plt Count 120 K/mm3 (140-440) L 08/15/18 05:07 Lymph % (Auto) 10.5 % (13.4-35.0) L 08/12/18 05:06 Emanuel % (Auto) 14.7 % (0.0-7.3) H 08/12/18 05:06 Eos % (Auto) 1.3 % (0.0-4.3) 08/12/18 05:06 Baso % (Auto) 0.4 % (0.0-1.8) 08/12/18 05:06 Lymph # 1.1 K/mm3 (1.2-5.4) L 08/12/18 05:06 Emanuel # 1.5 K/mm3 (0.0-0.8) H 08/12/18 05:06 Eos # 0.1 K/mm3 (0.0-0.4) 08/12/18 05:06 Baso # 0.0 K/mm3 (0.0-0.1) 08/12/18 05:06 Seg Neutrophils % 73.1 % (40.0-70.0) H 08/12/18 05:06 Seg Neutrophils # 7.4 K/mm3 (1.8-7.7) 08/12/18 05:06 Sodium 140 mmol/L (137-145) 08/12/18 05:06 Potassium 4.3 mmol/L (3.6-5.0) 08/12/18 05:06 Chloride 104.5 mmol/L (98-107) 08/12/18 05:06 Carbon Dioxide 25 mmol/L (22-30) 08/12/18 05:06 Anion Gap 15 mmol/L 08/12/18 05:06 BUN 14 mg/dL (9-20) 08/12/18 05:06 Creatinine 0.7 mg/dL (0.8-1.5) L 08/12/18 05:06 Estimated GFR > 60 ml/min 08/12/18 05:06 BUN/Creatinine Ratio 20 % 08/12/18 05:06 Glucose 92 mg/dL (75-100) 08/12/18 05:06 POC Glucose 70 (70-105) 08/12/18 21:42 Lactic Acid 1.90 mmol/L (0.7-2.0) 08/11/18 19:16 Calcium 8.8 mg/dL (8.4-10.2) 08/12/18 05:06 Total Bilirubin 1.00 mg/dL (0.1-1.2) 08/11/18 19:16 AST 34 units/L (5-40) 08/11/18 19:16 ALT 26 units/L (7-56) 08/11/18 19:16 Alkaline Phosphatase 125 units/L (35-129) 08/11/18 19:16 Total Creatine Kinase 65 units/L (55-170) 08/12/18 05:06 CK-MB (CK-2) 1.1 ng/mL (0.0-4.0) 08/12/18 05:06 CK-MB (CK-2) Rel Index 1.6 (0-4) 08/12/18 05:06 Troponin T < 0.010 ng/mL (0.00-0.029) 08/12/18 05:06 NT-Pro-B Natriuret Pep 93.59 pg/mL (0-900) 08/11/18 19:16 Total Protein 7.7 g/dL (6.3-8.2) 08/11/18 19:16 Albumin 3.0 g/dL (3.9-5) L 08/11/18 19:16 Albumin/Globulin Ratio 0.6 % 08/11/18 19:16
--- NOTE | 2018-08-15 18:56 | Progress Note ---
Assessment and Plan - Patient Problems (1) Acute dyspnea Current Visit: Yes Status: Acute Plan to address problem: supportive care. (2) Lung nodules Current Visit: No Status: Acute Plan to address problem: This is part of his mets. (3) Colon cancer Current Visit: Yes Status: Acute Plan to address problem: See notes above. (4) Lower back pain Current Visit: Yes Status: Acute Plan to address problem: This is probably due to his cancer, will need pain management. Subjective Date of service: 08/15/18 Principal diagnosis: colon cancer. Interval history: I am covering DR Seay/PM group. Patient seen/examined, records reviewed, no family around. Previous notes indicates that he is a long time patient of [facility] , and I have asked the nurse /staff to find out if they come here so as to assume care for continuity.Other celis, he is complaing of lower back pain. Notes /labs reviewed also.He will need pain control in the mean time.and monitor his labs. Patient seen, resting in bed, labs reviewed.No new issues at this time Still covering DR Seay, patient seen, resting in bed, labs reviewed.He most likely will get treatment ,if needed as an out patient ,with [facility]. Objective - Constitutional Vitals: Vital Signs - 12hr 08/15/18 08/15/18 08/15/18 08:06 08:46 08:47 Temperature Pulse Rate 100 H Pulse Rate [ 101 H Bilateral Throughout] Pulse Rate [ 106 H Bilateral] Respiratory Rate Respiratory 18 Rate [Bilateral Throughout] Respiratory 18 Rate [Bilateral ] Blood Pressure O2 Sat by Pulse 95 Oximetry 08/15/18 08/15/18 08/15/18 09:23 10:00 12:36 Temperature 98.2 F 98.6 F Pulse Rate 99 H 80 Pulse Rate [ Bilateral Throughout] Pulse Rate [ Bilateral] Respiratory 16 16 18 Rate Respiratory Rate [Bilateral Throughout] Respiratory Rate [Bilateral ] Blood Pressure 125/62 131/65 O2 Sat by Pulse 95 96 Oximetry 08/15/18 08/15/18 13:05 16:56 Temperature 97.6 F Pulse Rate 104 H Pulse Rate [ 100 H Bilateral Throughout] Pulse Rate [ 96 H Bilateral] Respiratory 16 Rate Respiratory 18 Rate [Bilateral Throughout] Respiratory 18 Rate [Bilateral ] Blood Pressure 130/69 O2 Sat by Pulse 96 Oximetry General appearance: Present: mild distress - EENT Eyes: PERRL, EOM intact ENT: hearing intact, clear oral mucosa Ears: bilateral: normal - Neck Neck: supple, normal ROM - Respiratory Respiratory effort: normal Respiratory: bilateral: CTA - Breasts Breasts: deferred - Cardiovascular Rhythm: regular Heart Sounds: Present: S1 & S2. Absent: gallop, rub Extremities: pulses intact, No edema, normal color, Full ROM - Gastrointestinal General gastrointestinal: Present: soft, non-tender, non-distended, normal bowel sounds Rectal Exam: deferred - Genitourinary Male genitourinary: deferred - Integumentary Integumentary: clear, warm, dry - Musculoskeletal Musculoskeletal: 1, strength equal bilaterally - Neurologic Neurologic: moves all extremities - Psychiatric Psychiatric: appropriate mood/affect - Labs CBC & Chem 7: 08/15/18 05:07 08/12/18 05:06 Labs: Abnormal lab results 08/15/18 Range/Units 05:07 WBC 11.4 H (4.5-11.0) K/mm3 RDW 17.7 H (13.2-15.2) % Plt Count 120 L (140-440) K/mm3
[2018-08-15] MEDS: REQUIP PO SCH (21:57)
[2018-08-16 05:29] LABS: Basophils % (Auto) 0.4 % (0.0-1.8); Eosinophils # (Auto) 0.2 K/mm3 (0.0-0.4); Eosinophils % (Auto) 2.2 % (0.0-4.3); Hematocrit 42.6 % (35.5-45.6); Hemoglobin 14.3 gm/dl (11.8-15.2); Lymphocytes # (Auto) 0.7 K/mm3 (1.2-5.4); Lymphocytes % (Auto) 9.7 % (13.4-35.0); Mean Corpuscular HGB Conc 34 % (32-34); Mean Corpuscular Hemoglobin 31 pg (28-32); Mean Corpuscular Volume 92 fl (84-94); Monocytes # (Auto) 0.9 K/mm3 (0.0-0.8); Platelet Count 111 K/mm3 (140-440); Red Blood Count 4.62 M/mm3 (3.65-5.03); Red Cell Distribution Width 17.7 % (13.2-15.2)
[2018-08-16] MEDS: MERREM 1,000 MG in NACL 0.9% 100 ML IV SCH ×3 (05:45→22:30)
[2018-08-16] MEDS: PERCOCET 5/325 PO PRN ×3 (05:51→22:30)
[2018-08-16] MEDS: DUONEB *Not for PRN Use IH SCH ×3 (08:18→19:20)
--- NOTE | 2018-08-16 09:12 | Progress Note ---
Assessment and Plan Assessment and plan: Chronic thrombocytopenia - from underlying malignancy, stable - cont to monitor bleeding precautions LT buttock abscess - s/p I and D from outside facility - wound Cx growing ESBL, - Antibiotic changed to meropenem - ID recommended 10 days of ertapenem on discharge. Metastatic colon Cancer - s/p total colectomy and end ileostomy - cont supportive care Abdominal pain likely from undelying cancer, gastritis and lumber lytic lesion - medical mx with pain control and PPI b/L Lung mass 2/2 metastatic disease - cont nebs as needed DVT prophalaxis, lovenox Disp: continue current mgt plans Total Time Spent with Patient (Minutes): 25 mins History Interval history: being managed with IV abx for abscess, No new complaints' Hospitalist Physical - Constitutional Vitals: Temp Pulse Resp BP Pulse Ox 98.2 F 85 18 135/71 95 08/16/18 05:42 08/16/18 05:42 08/16/18 05:42 08/16/18 05:42 08/16/18 05:42 General appearance: Present: no acute distress, mild distress, well-nourished - EENT Eyes: Present: PERRL, EOM intact ENT: hearing intact, clear oral mucosa - Neck Neck: Present: supple, normal ROM - Respiratory Respiratory: bilateral: CTA, negative: rales, rhonchi, wheezing - Cardiovascular Rhythm: regular Heart Sounds: Present: S1 & S2 - Extremities Extremities: pulses intact, No edema Extremity abnormal: cyanosis - Abdominal General gastrointestinal: soft, non-tender, non-distended, normal bowel sounds - Integumentary Integumentary: Present: clear, warm, dry - Psychiatric Psychiatric: intact judgment & insight, cooperative - Neurologic Neurologic: CNII-XII intact, moves all extremities - Allied Health Allied health notes reviewed: nursing Results - Labs CBC & Chem 7: 08/16/18 05:06 08/12/18 05:06 Labs: Laboratory Last Values WBC 7.7 K/mm3 (4.5-11.0) 08/16/18 05:06 RBC 4.62 M/mm3 (3.65-5.03) 08/16/18 05:06 Hgb 14.3 gm/dl (11.8-15.2) 08/16/18 05:06 Hct 42.6 % (35.5-45.6) 08/16/18 05:06 MCV 92 fl (84-94) 08/16/18 05:06 MCH 31 pg (28-32) 08/16/18 05:06 MCHC 34 % (32-34) 08/16/18 05:06 RDW 17.7 % (13.2-15.2) H 08/16/18 05:06 Plt Count 111 K/mm3 (140-440) L 08/16/18 05:06 Lymph % (Auto) 9.7 % (13.4-35.0) L 08/16/18 05:06 [place] % (Auto) 12.0 % (0.0-7.3) H 08/16/18 05:06 Eos % (Auto) 2.2 % (0.0-4.3) 08/16/18 05:06 Baso % (Auto) 0.4 % (0.0-1.8) 08/16/18 05:06 Lymph # 0.7 K/mm3 (1.2-5.4) L 08/16/18 05:06 Johnson # 0.9 K/mm3 (0.0-0.8) H 08/16/18 05:06 Eos # 0.2 K/mm3 (0.0-0.4) 08/16/18 05:06 Baso # 0.0 K/mm3 (0.0-0.1) 08/16/18 05:06 Seg Neutrophils % 75.7 % (40.0-70.0) H 08/16/18 05:06 Seg Neutrophils # 5.8 K/mm3 (1.8-7.7) 08/16/18 05:06 Sodium 140 mmol/L (137-145) 08/12/18 05:06 Potassium 4.3 mmol/L (3.6-5.0) 08/12/18 05:06 Chloride 104.5 mmol/L (98-107) 08/12/18 05:06 Carbon Dioxide 25 mmol/L (22-30) 08/12/18 05:06 Anion Gap 15 mmol/L 08/12/18 05:06 BUN 14 mg/dL (9-20) 08/12/18 05:06 Creatinine 0.7 mg/dL (0.8-1.5) L 08/12/18 05:06 Estimated GFR > 60 ml/min 08/12/18 05:06 BUN/Creatinine Ratio 20 % 08/12/18 05:06 Glucose 92 mg/dL (75-100) 08/12/18 05:06 POC Glucose 70 (70-105) 08/12/18 21:42 Lactic Acid 1.90 mmol/L (0.7-2.0) 08/11/18 19:16 Calcium 8.8 mg/dL (8.4-10.2) 08/12/18 05:06 Total Bilirubin 1.00 mg/dL (0.1-1.2) 08/11/18 19:16 AST 34 units/L (5-40) 08/11/18 19:16 ALT 26 units/L (7-56) 08/11/18 19:16 Alkaline Phosphatase 125 units/L (35-129) 08/11/18 19:16 Total Creatine Kinase 65 units/L (55-170) 08/12/18 05:06 CK-MB (CK-2) 1.1 ng/mL (0.0-4.0) 08/12/18 05:06 CK-MB (CK-2) Rel Index 1.6 (0-4) 08/12/18 05:06 Troponin T < 0.010 ng/mL (0.00-0.029) 08/12/18 05:06 NT-Pro-B Natriuret Pep 93.59 pg/mL (0-900) 08/11/18 19:16 Total Protein 7.7 g/dL (6.3-8.2) 08/11/18 19:16 Albumin 3.0 g/dL (3.9-5) L 08/11/18 19:16 Albumin/Globulin Ratio 0.6 % 08/11/18 19:16 - Imaging and Cardiology Chest x-ray: report reviewed, image reviewed CT scan - abdomen: report reviewed, image reviewed
[2018-08-16] MEDS: FLOMAX PO SCH (09:59)
[2018-08-16] MEDS: LYRICA PO SCH (09:59)
[2018-08-16] MEDS: PROTONIX PO SCH (09:59)
[2018-08-16] MEDS: SODIUM CHLORIDE FLUSH SYRINGE 10 ML IV SCH ×2 (10:00→22:00)
--- NOTE | 2018-08-16 12:43 | Progress Note ---
Assessment and Plan 78 yo M with 1. left lower back abscess r/o bowel fistula 2. metastatic colon ca to lung, s/p total colectomy and end ileostomy Plan: 1. wound care daily 2. c/w abx per ID, patient will be discharged with IV abx 3. prn PO pain control 4. patient may be discharged and follow up in [facility] wound care center in 1 week. I explained to the patient's daughter and patient (via her translation) that he will be discharged with IV abx per ID via the port and that he will have home care set up for wound care. He will need to follow up with us in [facility] to continue management of the wound. Thank you for this consultation, please call with questions or concerns. Subjective Date of service: 08/16/18 Narrative: Pt seen and examined. No overnight events. Minimal pain of left lower back in region of wound. NO f/c. Objective Vital Signs - 12hr 08/16/18 08/16/18 08/16/18 01:08 05:42 08:18 Temperature 98.0 F 98.2 F Pulse Rate 84 85 Pulse Rate [ 87 Bilateral] Respiratory 18 18 Rate Respiratory 18 Rate [Bilateral ] Blood Pressure Blood Pressure 131/64 135/71 [Left] O2 Sat by Pulse 95 95 Oximetry 08/16/18 08/16/18 08/16/18 08:25 08:28 10:00 Temperature 97.9 F Pulse Rate 72 Pulse Rate [ 88 Bilateral] Respiratory 16 Rate Respiratory 18 Rate [Bilateral ] Blood Pressure 136/61 Blood Pressure [Left] O2 Sat by Pulse 93 96 Oximetry - General physical appearance Narrative Exam: Gen: AAOx3. NAD CV: s1, s2+ resp: even and unlabored Ext: no c/c/e Back: Left lower back dressing removed and packing removed. Purulent material expressed from wound. Wound probed with cotton tip applicator and tracks 5 cm deep in the 7-8 oclock direction. Minimal surrounding periwound erythema. Wound packed with one piece of mesalt and covered with coversite dressing. - Labs 08/16/18 05:06 08/12/18 05:06
--- NOTE | 2018-08-16 16:22 | Progress Note ---
Assessment and Plan Assessment: 1) Left buttock/Presacral abscess +/- ?recto-cutanous fistula: -CT ab/pelvis showed pre sacral pelvic soft tissue thickening which could be related to prior surgery or radiation treatment. There is focal collection of air in the pre sacral soft tissues posterior to the rectum which could be evidence of a bowel fistula.There is a lytic lesion L4 measuring 2 centimeters. Metastatic lesion not excluded -Presacral Wound cultures 08/12 ESBL E coli -per surgery no fistula 2) Metastatic colon cancer s/p total colectomy and end ileostomy, s/p chemo in April 2018 3) Shortness of breath: from mets -Chest CTA showed no evidence of central pulmonary artery emboli. However, segmental pulmonary artery emboli could be missed or overcalled due to motion artifact, interval increase in size and number of the bilateral pulmonary masses , some demonstrate necrosis and partial opacification of left lower lobe bronchials 4) Thrombocytopenia Plan: -continue contact isolation -continue meropenem -continue wound care -check CRP pending -upon discharge will do ertapenem 1 g IV qday total 10 days until 08/24/18 via port. Order sent to rn case management for approval. I am signing off Thank you for your consultation, will follow up with you. Luh Nolan MD Infectious Diseases Specialist [facility] ([facility]) [phone] O [phone] Subjective Date of service: 08/16/18 Principal diagnosis: colon cancer. Interval history: Feels better no fever Microbiology: Wound cultures: 08/12 ESBL E coli Current Antimicrobials: meropenem Previous Antimicrobials: Zosyn Objective - Exam Narrative Exam: General appearance: Alert in NAD, conversant Eyes: anicteric sclerae, moist conjunctivae; no lid-lag; PERRLA HENT: Atraumatic; oropharynx clear Lungs: CTA, with normal respiratory effort and no intercostal retractions CV: RRR, no murmurs Abdomen: Soft, non-tender; no masses or hepatosplenomegaly Extremities: No peripheral edema or extremity lymphadenopathy Skin: gluteal wound w purulence Psych: Appropriate affect, alert and oriented to person, place and time. Neuro: alert and oriented x 3. Moving all extermities Lines: No CVL / PICC - Constitutional Vitals: Vital Signs Temp Pulse Resp BP Pulse Ox 97.9 F 94 H 18 136/64 99 08/16/18 13:07 08/16/18 14:58 08/16/18 14:58 08/16/18 13:07 08/16/18 13:07 Temperature -Last 24 Hours Temperature 97.9 F Temperature 97.9 F Temperature 98.2 F Temperature 98.0 F Temperature 98.0 F Temperature 97.6 F - Labs CBC & Chem 7: 08/16/18 05:06 08/12/18 05:06 Labs: Abnormal lab results 08/16/18 Range/Units 05:06 RDW 17.7 H (13.2-15.2) % Plt Count 111 L (140-440) K/mm3 Lymph % (Auto) 9.7 L (13.4-35.0) % [place] % (Auto) 12.0 H (0.0-7.3) % Lymph # 0.7 L (1.2-5.4) K/mm3 [place] # 0.9 H (0.0-0.8) K/mm3 Seg Neutrophils % 75.7 H (40.0-70.0) %
--- NOTE | 2018-08-16 20:09 | Progress Note ---
Assessment and Plan - Patient Problems (1) Acute dyspnea Current Visit: Yes Status: Acute Plan to address problem: supportive care. (2) Lung nodules Current Visit: No Status: Acute Plan to address problem: This is part of his mets. (3) Colon cancer Current Visit: Yes Status: Acute Plan to address problem: See notes above. (4) Lower back pain Current Visit: Yes Status: Acute Plan to address problem: This is probably due to his cancer, will need pain management. Subjective Date of service: 08/16/18 Principal diagnosis: colon cancer. Interval history: I am covering DR Seay/PM group. Patient seen/examined, records reviewed, no family around. Previous notes indicates that he is a long time patient of [facility] , and I have asked the nurse /staff to find out if they come here so as to assume care for continuity.Other celis, he is complaing of lower back pain. Notes /labs reviewed also.He will need pain control in the mean time.and monitor his labs. Patient seen, resting in bed, labs reviewed.No new issues at this time Still covering DR Seay, patient seen, resting in bed, labs reviewed.He most likely will get treatment ,if needed as an out patient ,with [facility]. Covering DR Seay, patient seen/examined, labs reviewed, PLT dropped to 111, w/ o any sign of bleed. Patient in no acute distress. He also denies any pain.Once stable, disposition back to [facility] will be as per you. Objective - Constitutional Vitals: Vital Signs - 12hr 08/16/18 08/16/18 08/16/18 08:18 08:25 08:28 Temperature 97.9 F Pulse Rate 72 Pulse Rate [ 87 88 Bilateral] Respiratory 16 Rate Respiratory 18 18 Rate [Bilateral ] Blood Pressure 136/61 Blood Pressure [Left] O2 Sat by Pulse 93 Oximetry 08/16/18 08/16/18 08/16/18 10:00 13:07 14:48 Temperature 97.9 F Pulse Rate 78 Pulse Rate [ 91 H Bilateral] Respiratory 16 Rate Respiratory 18 Rate [Bilateral ] Blood Pressure Blood Pressure 136/64 [Left] O2 Sat by Pulse 96 99 Oximetry 08/16/18 08/16/18 08/16/18 14:58 16:38 19:25 Temperature Pulse Rate Pulse Rate [ 94 H 96 H Bilateral] Respiratory Rate Respiratory 18 18 Rate [Bilateral ] Blood Pressure 155/77 Blood Pressure [Left] O2 Sat by Pulse Oximetry 08/16/18 08/16/18 19:26 19:33 Temperature Pulse Rate Pulse Rate [ 95 H Bilateral] Respiratory Rate Respiratory 18 Rate [Bilateral ] Blood Pressure Blood Pressure [Left] O2 Sat by Pulse 96 Oximetry General appearance: Present: no acute distress - EENT Eyes: PERRL, EOM intact ENT: hearing intact, clear oral mucosa Ears: bilateral: normal - Neck Neck: supple, normal ROM - Respiratory Respiratory: bilateral: diminished - Breasts Breasts: deferred - Cardiovascular Rhythm: regular Heart Sounds: Present: S1 & S2. Absent: gallop, rub Extremities: pulses intact, No edema, normal color, Full ROM - Gastrointestinal General gastrointestinal: Present: soft, non-tender, non-distended, normal bowel sounds Rectal Exam: deferred - Genitourinary Male genitourinary: deferred - Integumentary Integumentary: clear, warm, dry - Musculoskeletal Musculoskeletal: 1, strength equal bilaterally - Neurologic Neurologic: moves all extremities - Psychiatric Psychiatric: appropriate mood/affect - Labs CBC & Chem 7: 08/16/18 05:06 08/12/18 05:06 Labs: Abnormal lab results 08/16/18 Range/Units 05:06 RDW 17.7 H (13.2-15.2) % Plt Count 111 L (140-440) K/mm3 Lymph % (Auto) 9.7 L (13.4-35.0) % [place] % (Auto) 12.0 H (0.0-7.3) % Lymph # 0.7 L (1.2-5.4) K/mm3 [place] # 0.9 H (0.0-0.8) K/mm3 Seg Neutrophils % 75.7 H (40.0-70.0) %
[2018-08-16] MEDS: REQUIP PO SCH (22:30)
[2018-08-17 01:44] LABS: Hematocrit 46.1 % (35.5-45.6); Hemoglobin 15.3 gm/dl (11.8-15.2); Mean Corpuscular HGB Conc 33 % (32-34); Mean Corpuscular Hemoglobin 31 pg (28-32); Mean Corpuscular Volume 94 fl (84-94)
[2018-08-17 02:14] LABS: BUN/Creatinine Ratio 18; Blood Urea Nitrogen 11 mg/dL (9-20); Calcium 8.9 mg/dL (8.4-10.2); Hemolysis Index 120
[2018-08-17 02:41] LABS: Platelet Count 134 K/mm3 (140-440)
[2018-08-17] MEDS: MERREM 1,000 MG in NACL 0.9% 100 ML IV SCH ×2 (06:25→14:00)
[2018-08-17] MEDS: DUONEB *Not for PRN Use IH SCH ×2 (08:02→14:40)
[2018-08-17] MEDS: PROTONIX PO SCH (10:00)
[2018-08-17] MEDS: LYRICA PO SCH (10:00)
[2018-08-17] MEDS: FLOMAX PO SCH (10:00)
[2018-08-17 12:24] VITALS: BP 132/69
--- NOTE | 2018-08-17 12:33 | Progress Note ---
Assessment and Plan - Patient Problems (1) Acute dyspnea Current Visit: Yes Status: Acute Plan to address problem: supportive care. (2) Lung nodules Current Visit: No Status: Acute Plan to address problem: This is part of his mets. (3) Colon cancer Current Visit: Yes Status: Acute Plan to address problem: See notes above. (4) Lower back pain Current Visit: Yes Status: Acute Plan to address problem: This is probably due to his cancer, will need pain management. Subjective Date of service: 08/17/18 Principal diagnosis: colon cancer. Interval history: I am covering DR Seay/PM group. Patient seen/examined, records reviewed, no family around. Previous notes indicates that he is a long time patient of [facility] , and I have asked the nurse /staff to find out if they come here so as to assume care for continuity.Other celis, he is complaing of lower back pain. Notes /labs reviewed also.He will need pain control in the mean time.and monitor his labs. Patient seen, resting in bed, labs reviewed.No new issues at this time Still covering DR Seay, patient seen, resting in bed, labs reviewed.He most likely will get treatment ,if needed as an out patient ,with [facility]. Covering DR Seay, patient seen/examined, labs reviewed, PLT dropped to 111, w/ o any sign of bleed. Patient in no acute distress. He also denies any pain.Once stable, disposition back to [facility] will be as per you. Covering Dr Seay. patient seen, resting in bed, no new issues at this time. Objective - Constitutional Vitals: Vital Signs - 12hr 08/17/18 08/17/18 08/17/18 00:34 04:41 08:02 Temperature 98.1 F 98.7 F Pulse Rate 92 H 85 Pulse Rate [ 102 H Bilateral] Respiratory 18 16 Rate Respiratory 18 Rate [Bilateral ] Blood Pressure 127/71 123/63 O2 Sat by Pulse 95 94 Oximetry 08/17/18 08/17/18 08/17/18 08:11 08:12 08:29 Temperature 97.8 F Pulse Rate 101 H Pulse Rate [ 100 H Bilateral] Respiratory 18 Rate Respiratory 18 Rate [Bilateral ] Blood Pressure 123/67 O2 Sat by Pulse 98 95 Oximetry 08/17/18 12:22 Temperature 98.3 F Pulse Rate 89 Pulse Rate [ Bilateral] Respiratory 18 Rate Respiratory Rate [Bilateral ] Blood Pressure 132/69 O2 Sat by Pulse 94 Oximetry General appearance: Present: no acute distress - EENT Eyes: PERRL, EOM intact ENT: hearing intact, clear oral mucosa Ears: bilateral: normal - Neck Neck: supple, normal ROM - Respiratory Respiratory effort: normal Respiratory: bilateral: CTA - Breasts Breasts: deferred - Cardiovascular Rhythm: regular Heart Sounds: Present: S1 & S2. Absent: gallop, rub Extremities: pulses intact, No edema, normal color, Full ROM - Gastrointestinal General gastrointestinal: Present: soft, non-tender, non-distended, normal bowel sounds Rectal Exam: deferred - Genitourinary Male genitourinary: deferred - Integumentary Integumentary: clear, warm, dry - Musculoskeletal Musculoskeletal: 1, strength equal bilaterally - Neurologic Neurologic: moves all extremities - Psychiatric Psychiatric: appropriate mood/affect - Labs CBC & Chem 7: 08/17/18 00:33 08/17/18 00:33 Labs: Abnormal lab results 08/17/18 08/17/18 Range/Units 00:33 00:33 Hgb 15.3 H (11.8-15.2) gm/dl Hct 46.1 H (35.5-45.6) % RDW 18.0 H (13.2-15.2) % Plt Count 134 L (140-440) K/mm3 Sodium 135 L (137-145) mmol/L Carbon Dioxide 18 L D (22-30) mmol/L Creatinine 0.6 L (0.8-1.5) mg/dL
--- NOTE | 2018-08-17 14:43 | Discharge Summary ---
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 Line: port Labs: CBC, BMP, CRP every Tuesday AM Send results to ID office [id number] Benny Diaz 08/15/18 08/15/18 15:06 PICC Line Placement [Consult to PICC Line RN] [CONS] Routine Reason For Exam: iv antibiotic infusion for home Type Line:: PICC Primary care physician: [employer]CH[employer]ECT Hospitalization Condition: Serious Pertinent studies: chest xr CT abd/pelvis Procedures: incision and drainage of abscess Hospital course: History of present illness: 78 yo [place] speaking M with hx of colon cancer s/p colectomy with end ileostomy, on chemotherapy presents to hospital with c/o left hip pain. This pain started greater than one week ago and the patient was found to have an abscess in this location. He went to [facility], which is also where he had colon surgery 6 years ago, and underwent incision and drainage of the abscess. Per daughter, she does not think cultures were obtained but the patient was started on PO abx. He has felt better since then and fever has subsided. However, he was still having pain in the region of the incision and drainage along with drainage of pus. Pt is followed by Dr. Fernandes at [facility]. Brief Hospital Course: Patient was admitted to the hospital medicine, seen in consultation by ID and General surgery teams. Broad IV antibiotics started. Readjusted by the ID team. Cultures came back positive for ESBL . He was placed on Isolation. ID recommended 10 days of IV Ertapenen 1 g IV qday total 10 days. HH services have been arranged, and patient is being discharged home today, to complete 10 days of IV antibiotics. Patient is to follow up with his PCP, oncologist etc. Disposition: DC-30 STILL A PATIENT Time spent for discharge: More than 40 mins spent - Discharge Diagnoses (1) Abscess of lower back Status: Acute Comment: to complete 10 days of IV Ertapenen wound care HH services (2) Colon cancer Status: Acute Comment: outpatient follow with your oncologist (3) Lower back pain Status: Acute Comment: continue home medications (4) Pleural effusion Status: Acute Comment: monitor closely outpatient mgt (5) Lung nodules Status: Acute Comment: Outpatient follow up with primary Oncologist (6) Pneumonitis Status: Acute Comment: improved continue IV abx (7) Sepsis Status: Acute Comment: resolved complete IV antibiotics (8) Cellulitis Status: Acute Qualifiers: Site of cellulitis: buttock Qualified Code(s): L03.317 - Cellulitis of buttock Comment: IV antibiotics Core Measure Documentation - Palliative Care Palliative Care/ Comfort Measures: Not Applicable - Core Measures Any of the following diagnoses?: none - VTE Discharge Requirements Deep Vein Thrombosis/Pulmonary Embolism Present on Admission: No Has pt received <5 days of overlap therapy or INR<2.0: No Anticoagulant overlap therapy prescribed at discharge: No Contraindication No Overlap Therapy order at DC: Medical Contraindication - Acute ND Discharge Requirements Aspirin at discharge: No Reason for no aspirin on DC: Medical contraindication TIFFANIE/ARB for LVSD if EF <40%: Not Applicable Reason for no TIFFANIE/ARB: Medical contraindication Beta zane at discharge: No Reason for no beta zane on DC: Medical contraindication Statin for LDL = or >100 mg/dl on DC: Not Applicable Reason for no statin on DC: Medical contraindication - Heart Failure Discharge Requirements TIFFANIE/ARB for LVSD if EF <40%: Not Applicable Reason for no TIFFANIE/ARB: Medical contraindication Reason for no beta zane on DC: Medical contraindication - Stroke Discharge Requirements Statin for LDL = or >70 mg/dl on DC: Not Applicable Reason for no statin on DC: Medical Contraindication Anticoag for atrial fib/atrial flutter: Not Applicable Antithrombotic for ischemic stroke: No Reason for no antithrombotic on DC: Medical Contraindication Exam - Constitutional Vitals: Temp Pulse Resp BP Pulse Ox 98.3 F 89 18 132/69 94 08/17/18 12:22 08/17/18 12:22 08/17/18 12:22 08/17/18 12:22 08/17/18 12:22 General appearance: Present: no acute distress, other (elderly and ill appearing ) - EENT Eyes: Present: PERRL, EOM intact, scleral icterus ENT: hearing intact, clear oral mucosa - Neck Neck: Present: supple, normal ROM - Respiratory Respiratory: bilateral: CTA, negative: rales, rhonchi, wheezing - Cardiovascular Rhythm: regular Heart Sounds: Present: S1 & S2 - Extremities Extremity abnormal: pulses diminished - Abdominal General gastrointestinal: Present: soft, tender (chronic), normal bowel sounds Male genitourinary: Present: deferred - Rectal Rectal Exam: deferred - Integumentary Integumentary: Present: clear, warm, dry - Musculoskeletal Musculoskeletal: generalized weakness - Psychiatric Psychiatric: appropriate mood/affect, intact judgment & insight, cooperative - Neurologic Neurologic: CNII-XII intact, moves all extremities - Allied Health Allied health notes reviewed: nursing, social work, case management Plan Activity: advance as tolerated, up only with assistance, fall precautions Diet: regular Wound: keep clean and dry, per wound nurse instructions Special Instructions: record daily BP diary, home health RN Follow up with: PRIMARY CARE, [Primary Care Provider] - 3-5 Days
== END 2018-08-17 16:00 | disposition home health service (06) | DRG 871 ==
LOC: ED 15:11 → CC1 23:51 → 4A 08-12 00:32 → IMCU 08-12 05:31 → 4A 08-12 23:15
PROVIDERS: ADMIT Internal Medicine; ATTEND Family Medicine
DX: A41.9 Sepsis, unspecified organism (principal); J18.9 Pneumonia, unspecified organism; J90 Pleural effusion, not elsewhere classified; C78.00 Secondary malignant neoplasm of unspecified lung; L02.212 Cutaneous abscess of back [any part, except buttock and flank]; L03.317 Cellulitis of buttock; D69.6 Thrombocytopenia, unspecified; K21.9 Gastro-esophageal reflux disease without esophagitis; N40.0 Benign prostatic hyperplasia without lower urinary tract symptoms; B96.20 Unspecified Escherichia coli [E. coli] as the cause of diseases classified elsewhere; Z16.12 Extended spectrum beta lactamase (ESBL) resistance; E86.0 Dehydration; G89.3 Neoplasm related pain (acute) (chronic); K29.00 Acute gastritis without bleeding; Z90.49 Acquired absence of other specified parts of digestive tract; Z82.49 Family history of ischemic heart disease and other diseases of the circulatory system; Z79.899 Other long term (current) drug therapy; Z93.3 Colostomy status; Z92.3 Personal history of irradiation; Z92.21 Personal history of antineoplastic chemotherapy; Z85.038 Personal history of other malignant neoplasm of large intestine
CPT/HCPCS: 36415; 71045; 71275; 74176; 80048; 80053; 82140; 82550; 82553; 82962; 83880; 84484; 85025; 85027; 87076; 87116; 87186; 93005; 93010; 94640; 94760; 96365; 96375; J0696; J2185; J2270; J2405; J2543; J3010; J7040; Q9967